=== PATIENT | male | born 1970 | race Hispanic/Latino ===

== ENCOUNTER 2017-11-14 06:37 | Emergency (ER) | payer BC, OTHER, SELFPAY ==
[2017-11-14] MEDS ORDERED: cloNIDine HCl 0.1 MG TAB ONE (07:07)
[2017-11-14 07:10] LABS: Absolute Lymphocytes (CBC) 1.8 K/uL (0.7-4.9); Absolute Monocytes 0.6 K/uL (0.1-1.3); Basophils % 0.6 % (0-1.3); Eosinophils % 1.3 % (0-4.4); Hematocrit 42.8 % (39.6-49.0); Lymphocytes % 21.3 % (15.3-44.8); MCH 28.2 pg (27.0-35.0); MCV 82.8 fL (80-100); MPV 9.1 fL (7.6-11.3); RBC Red Blood Cell Count 5.17 M/uL (4.33-5.43)
[2017-11-14 07:11] LABS: Protime INR 0.97
--- NOTE | 2017-11-14 07:14 | RAD REPORT ---
EXAM DESCRIPTION: CT - Head Brain Wo Cont - 11/14/2017 7:05 am CLINICAL HISTORY: Headache, hypertension It is unknown if the exam [facility] Final report issued prior t o any preliminary report. COMPARISON: None. TECHNIQUE: Axial 5 mm thick images of the head were obtained without IV contrast. All CT scans are performed using dose optimization technique as appropriate and may include automated exposure control or mA/KV adjustment according to patient size. FINDINGS: No intracranial hemorrhage, mass, edema or shift of mid-line structures. No acute infarcti on changes seen. No abnormal extra-axial fluid collections. Ventricles are normal. Faint hyperdensity near the left head of the caudate not seen as an acute finding. This is believed to be technical in nature. No cortical edema or sulcal effacement. Mastoid air cells and visualized portions of the paranasal sinuses are clear. No acute bony findings. IMPRESSION: No hemorrhage, mass or other abnormality to explain headache. No suspicious findings not ed.
[2017-11-14 07:26] LABS: ALT/SGPT 40 U/L (12-78); AST/SGOT 22 U/L (15-37); Albumin 3.9 g/dL (3.4-5.0); Alkaline Phosphatase 75 U/L (45-117); BUN Blood Urea Nitrogen 13 mg/dL (7-18); Bicarbonate 29 mmol/L (21-32); Bilirubin Direct 0.1 mg/dL (0-0.2); Bilirubin Total 0.6 mg/dL (0.2-1.0); Glucose Level 190 mg/dL (74-106); Magnesium 2.2 mg/dL (1.8-2.4); NT PRO-BNP 42 pg/mL (<125); Potassium 3.9 mmol/L (3.5-5.1); Protein, Total 7.5 g/dL (6.4-8.2); Sodium Level 140 mmol/L (136-145); Troponin (Emerg Dept Use Only) < 0.02 ng/mL (0.0-0.045)
--- NOTE | 2017-11-14 07:32 | EKG ---
Test Date: 2017-11-14 Test Time: 06:47:57 Full Stack Software Developer: BIANKA MEASUREMENT RESULTS: Intervals: Rate: 78 MS: 144 QRSD: 86 QT: 390 QTc: 444 [place]: P: 40 MS: 144 QRS: 18 T: 30 INTERPRETIVE STATEMENTS: Normal sinus rhythm Normal ECG Compared to ECG 01/23/2016 19:47:24 Left ventricular hypertrophy no longer present Electronically Signed On 11-14-17 07:31:47 CDT by Facundo Machuca
[2017-11-14] MEDS ORDERED: ACETAMINOPHEN 500 MG TAB ONE (08:02)
--- NOTE | 2017-11-14 09:53 | RAD REPORT ---
EXAM DESCRIPTION: RAD - Chest Single View - 11/14/2017 7:05 am CLINICAL HISTORY: Chest pain, hypertension COMPARISON: January 2016 TECHNIQUE: AP portable chest image was obtained 0651 hours . FINDINGS: Lungs are clear. Heart and vasculature are normal. No measurable pleural effusion and no p neumothorax. No acute bone finding. Old traumatic or developmental abnormality of the right second ri b noted and stable. No acute aortic findings suspected. IMPRESSION: No acute cardiopulmonary process. No significant change from comparison.
[2017-11-14] MEDS ORDERED: IBUPROFEN 200 MG TAB PO ONE (11:17)
--- NOTE | 2017-11-14 11:55 | EDPHYS ---
Physician Documentation [facility] Name: Lexa Carrizales Jr Age: 46 yrs Sex: Male : 1970 Arrival Date: 11/14/2017 Time: 06:38 Bed 8 Private MD: ED Physician Karlos Feng HPI: 11/14 07:39 This 46 yrs old Male presents to ER via Ambulatory with complaints of Chest kb Tightness, Headache, Blood Pressure Problem. 07:39 The patient has elevated blood pressure and discovered this at home, with a home kb device. Onset: The symptoms/episode began/occurred 3 day(s) ago. Associated signs and symptoms: Pertinent positives: chest pain, headache, Pertinent negatives: dizziness, dyspnea, lightheadedness, nausea, visual changes, vomiting, weakness. Severity of symptoms: At its worst the blood pressure was 160 mm Hg. The patient has not experienced similar symptoms in the past. The patient has not recently seen a physician. Pt reports high blood pressure and headache for 3 days, chest discomfort this morning. Had the nurse check his bp at work and she advised he come be evaluated at ER. Historical: - Allergies: 06:49 No Known Allergies; bb - Home Meds: 06:49 Unable to obtain [Active]; bb - PMHx: 06:49 Diabetes - IDDM; Hypertension; bb - PSHx: 06:49 Appendectomy; Hernia repair; Knee surgery; bb - Immunization history:: Adult Immunizations up to date. - Social history:: Smoking status: Patient/guardian denies using tobacco, Patient uses alcohol, occasionally. Patient/guardian denies using street drugs. - Ebola Screening: : No symptoms or risks identified at this time. ROS: 07:38 Constitutional: Negative for fever, chills, and weight loss, Respiratory: Negative for kb shortness of breath, cough, wheezing, and pleuritic chest pain, Abdomen/GI: Negative for abdominal pain, nausea, vomiting, diarrhea, and constipation, Back: Negative for injury and pain, : Negative for injury, bleeding, discharge, and swelling, MS/Extremity: Negative for injury and deformity, Skin: Negative for injury, rash, and discoloration. 07:38 Cardiovascular: Positive for "chest discomfort, not pain". 07:38 Neuro: Positive for headache. Exam: 07:38 Constitutional: This is a well developed, well nourished patient who is awake, alert, kb and in no acute distress. Head/Face: Normocephalic, atraumatic. Eyes: Pupils equal round and reactive to light, extra-ocular motions intact. Lids and lashes normal. Conjunctiva and sclera are non-icteric and not injected. Cornea within normal limits. Periorbital areas with no swelling, redness, or edema. ENT: Nares patent. No nasal discharge, no septal abnormalities noted. Tympanic membranes are normal and external auditory canals are clear. Oropharynx with no redness, swelling, or masses, exudates, or evidence of obstruction, uvula midline. Mucous membranes moist. Neck: Trachea midline, no thyromegaly or masses palpated, and no cervical lymphadenopathy. Supple, full range of motion without nuchal rigidity, or vertebral point tenderness. No Meningismus. Chest/axilla: Normal chest wall appearance and motion. Nontender with no deformity. No lesions are appreciated. Cardiovascular: Regular rate and rhythm with a normal S1 and S2. No gallops, murmurs, or rubs. Normal PMI, no JVD. No pulse deficits. Respiratory: Lungs have equal breath sounds bilaterally, clear to auscultation and percussion. No rales, rhonchi or wheezes noted. No increased work of breathing, no retractions or nasal flaring. Abdomen/GI: Soft, non-tender, with normal bowel sounds. No distension or tympany. No guarding or rebound. No evidence of tenderness throughout. Skin: Warm, dry with normal turgor. Normal color with no rashes, no lesions, and no evidence of cellulitis. MS/ Extremity: Pulses equal, no cyanosis. Neurovascular intact. Full, normal range of motion. Neuro: Awake and alert, GCS 15, oriented to person, place, time, and situation. Cranial nerves II-XII grossly intact. Motor strength 5/5 in all extremities. Sensory grossly intact. Cerebellar exam normal. Normal gait. Vital Signs: 06:49 BP 167 / 112; Pulse 83; Resp 16 S; Temp 97.7(O); Pulse Ox 97% on R/A; Weight 108.86 kg bb (R); Height 5 ft. 10 in. (177.80 cm) (R); Pain 5/10; 07:23 BP 146 / 93; Pulse 77; Resp 15; Pulse Ox 98% on R/A; Pain 5/10; ss 07:49 BP 134 / 89; Pulse 76; Resp 16; Pulse Ox 98% on R/A; Pain 4/10; ss 08:56 BP 136 / 99; Pulse 72; Resp 16; Pulse Ox 100% on R/A; ss 11:00 BP 129 / 87; Pulse 65; Resp 17; Pulse Ox 97% on R/A; Pain 5/10; ss 06:49 Body Mass Index 34.44 (108.86 kg, 177.80 cm) bb MDM: 06:43 Patient medically screened. kb 07:38 Data reviewed: vital signs, nurses notes. Data interpreted: Pulse oximetry: on room air kb is 98 %. Interpretation: normal. 11:55 Counseling: I had a detailed discussion with the patient and/or guardian regarding: the kb historical points, exam findings, and any diagnostic results supporting the discharge/admit diagnosis, lab results, radiology results, the need for outpatient follow up, a family practitioner, to return to the emergency department if symptoms worsen or persist or if there are any questions or concerns that arise at home. 11/14 06:49 Order name: Basic Metabolic Panel; Complete Time: 07:29 kb 11/14 06:49 Order name: CBC with Diff; Complete Time: 07:11 kb 11/14 06:49 Order name: LFT's; Complete Time: 07:29 kb 11/14 06:49 Order name: Magnesium; Complete Time: 07:29 kb 11/14 06:49 Order name: NT PRO-BNP; Complete Time: 07:29 kb 11/14 06:49 Order name: PT-INR; Complete Time: 07:14 kb 11/14 06:49 Order name: Troponin (emerg Dept Use Only); Complete Time: 07:29 kb 11/14 06:49 Order name: XRAY Chest (1 view); Complete Time: 09:55 kb 11/14 06:49 Order name: EKG; Complete Time: 06:50 kb 11/14 06:50 Order name: CT Head Brain wo Cont; Complete Time: 07:16 kb 11/14 10:53 Order name: Troponin (emerg Dept Use Only); Complete Time: 11:55 kb 11/14 06:49 Order name: Cardiac monitoring; Complete Time: 06:52 kb 11/14 06:49 Order name: EKG - Nurse/Tech; Complete Time: 06:52 kb 11/14 06:49 Order name: IV Saline Lock; Complete Time: 07:01 kb 11/14 06:49 Order name: Labs collected and sent; Complete Time: 07:01 kb 11/14 06:49 Order name: O2 Per Protocol; Complete Time: 06:52 kb 11/14 06:49 Order name: O2 Sat Monitoring; Complete Time: 06:52 kb 11/14 10:54 Order name: EKG; Complete Time: 10:54 kb 11/14 10:54 Order name: EKG - Nurse/Tech; Complete Time: 11:45 kb Administered Medications: 07:52 Not Given (Hemodynamic Parameters): cloNIDine 0.1 mg PO once ss 07:59 Drug: Tylenol 1000 mg Route: PO; ss 11:12 Drug: Ibuprofen 600 mg Route: PO; ss 12:15 Follow up: Response: No adverse reaction aa5 Disposition: 11/14/17 11:55 Discharged to Home. Impression: Essential (primary) hypertension, Chest pain, unspecified. - Condition is Stable. - Discharge Instructions: Nonspecific Chest Pain, [id number], Hypertension, [id number]. - Medication Reconciliation Form, Thank You Letter, Antibiotic Education, Prescription Opioid Use form. - Follow up: Emergency Department; When: As needed; Reason: Worsening of condition. Follow up: Private Physician; When: 2 - 3 days; Reason: Recheck today's complaints, Continuance of care, Re-evaluation by your physician. Signatures: Dispatcher [employer] EDIL Lacey Laura, BACKWINDER-C BACKWINDER-Zabrina Deluca, RN RN bb Nkechi Cruz, RN RN aa5 Georgina Land RN RN ss Corrections: (The following items were deleted from the chart) 12:18 11:55 11/14/2017 11:55 Discharged to Home. Impression: Essential (primary) aa5 hypertension; Chest pain, unspecified. Condition is Stable. Forms are Medication Reconciliation Form, Thank You Letter, Antibiotic Education, Prescription Opioid Use. Follow up: Emergency Department; When: As needed; Reason: Worsening of condition. Follow up: Private Physician; When: 2 - 3 days; Reason: Recheck today's complaints, Continuance of care, Re-evaluation by your physician. kb
--- NOTE | 2017-11-14 11:55 | ER ---
Nurse's Notes [facility] Name: Lexa Carrizales Jr Age: 46 yrs Sex: Male : 1970 Arrival Date: 11/14/2017 Time: 06:38 Bed 8 Private MD: Diagnosis: Essential (primary) hypertension;Chest pain, unspecified Presentation: 11/14 06:46 Presenting complaint: Patient states: his blood pressure has been elevated the last 3 bb days 140s/110s he takes blood pressure medication but does not know the name also c/o headaches and then this morning he is having some chest discomfort. Transition of care: patient was not received from another setting of care. Onset of symptoms was November 11, 2017. Risk Assessment: Do you want to hurt yourself or someone else? Patient reports no desire to harm self or others. Initial Sepsis Screen: Does the patient meet any 2 criteria? No. Patient's initial sepsis screen is negative. Does the patient have a suspected source of infection? No. Patient's initial sepsis screen is negative. Care prior to arrival: None. 06:46 Method Of Arrival: Ambulatory bb 06:46 Acuity: SJ 3 bb Historical: - Allergies: 06:49 No Known Allergies; bb - Home Meds: 06:49 Unable to obtain [Active]; bb - PMHx: 06:49 Diabetes - IDDM; Hypertension; bb - PSHx: 06:49 Appendectomy; Hernia repair; Knee surgery; bb - Immunization history:: Adult Immunizations up to date. - Social history:: Smoking status: Patient/guardian denies using tobacco, Patient uses alcohol, occasionally. Patient/guardian denies using street drugs. - Ebola Screening: : No symptoms or risks identified at this time. Screenin:18 Abuse screen: Denies threats or abuse. Denies injuries from another. Nutritional ss screening: No deficits noted. Tuberculosis screening: Never had TB. Fall Risk None identified. Assessment: 07:02 Reassessment: Pt to CT at this time VIA wheelchair. Report received from [facility] Aranda. ss 07:18 General: Appears in no apparent distress. comfortable, Behavior is calm, cooperative, ss Denies fever, feeling ill, fatigue, chills. Pain: Complains of pain in chest Pain does not radiate. Pain currently is 5 out of 10 on a pain scale. Quality of pain is described as "it's not pain, it's just chest discomfort/ tightness". Pain: Pain began 2-3 days ago. Is intermittent. Neuro: Level of Consciousness is awake, alert, obeys commands, Oriented to person, place, time, situation, Range Conservationist are equal bilaterally Moves all extremities. Full function Speech Facial symmetry appears normal, Pupils are PERRLA. Cardiovascular: Capillary refill < 3 seconds is brisk in bilateral fingers Patient's skin is warm and dry. Respiratory: Airway is patent Respiratory effort is even, unlabored, Respiratory pattern is regular, symmetrical. Respiratory: Denies cough, shortness of breath pain with respiration, pain with cough, pain with movement. Respiratory: Breath sounds are clear bilaterally. GI: Patient currently denies diarrhea, nausea, vomiting. : No signs and/or symptoms were reported regarding the genitourinary system. EENT: Nares are clear. Derm: Skin is intact, is healthy with good turgor, Skin is dry, Skin is pink, warm \\T\\ dry. normal. Musculoskeletal: Circulation, motion, and sensation intact. Range of motion: intact in all extremities, Swelling absent. 07:18 Reassessment: blood pressure trending down. Pt reports that he self administered his ss blood pressure medication as prescribed this AM at 0500. Will hold clonidine. 08:58 Reassessment: awaiting for 4 hour repeat troponin and EKG. Patient appears comfortable. ss 12:15 Reassessment: Patient is alert, oriented x 3, equal unlabored respirations, skin aa5 warm/dry/pink. Vital Signs: 06:49 BP 167 / 112; Pulse 83; Resp 16 S; Temp 97.7(O); Pulse Ox 97% on R/A; Weight 108.86 kg bb (R); Height 5 ft. 10 in. (177.80 cm) (R); Pain 5/10; 07:23 BP 146 / 93; Pulse 77; Resp 15; Pulse Ox 98% on R/A; Pain 5/10; ss 07:49 BP 134 / 89; Pulse 76; Resp 16; Pulse Ox 98% on R/A; Pain 4/10; ss 08:56 BP 136 / 99; Pulse 72; Resp 16; Pulse Ox 100% on R/A; ss 11:00 BP 129 / 87; Pulse 65; Resp 17; Pulse Ox 97% on R/A; Pain 5/10; ss 06:49 Body Mass Index 34.44 (108.86 kg, 177.80 cm) bb ED Course: 06:38 Patient arrived in ED. ds1 06:43 [facility]acey [facility]C [facility] kb 06:43 Karlos Feng MD is Attending Physician. kb 06:48 Triage completed. bb 06:49 Arm band placed on. bb 07:01 X-ray completed. Portable x-ray completed in exam room. Patient tolerated procedure jb2 well. 07:01 Initial lab(s) drawn, by me, sent to lab. Inserted saline lock: 20 gauge in right bb antecubital area, using aseptic technique. Blood collected. 07:04 XRAY Chest (1 view) In Process Unspecified. EDMS 07:05 CT Head Brain wo Cont In Process Unspecified. EDMS 07:05 CT completed. Patient tolerated procedure well. Patient moved to CT via wheelchair. jg6 Patient moved back from CT. 07:18 Georgina Land, RN is Primary Nurse. ss 07:18 Patient has correct armband on for positive identification. Bed in low position. Call ss light in reach. electronic device monitor on. Pulse ox on. NIBP on. 07:18 Patient maintains SpO2 saturation greater than 95% on room air. ss 11:28 EKG done, by distribution tech. reviewed by Lacey ROCK. at1 12:15 No provider procedures requiring assistance completed. IV discontinued, intact, aa5 bleeding controlled, No redness/swelling at site. Pressure dressing applied. Administered Medications: 07:52 Not Given (Hemodynamic Parameters): cloNIDine 0.1 mg PO once ss 07:59 Drug: Tylenol 1000 mg Route: PO; ss 11:12 Drug: Ibuprofen 600 mg Route: PO; ss 12:15 Follow up: Response: No adverse reaction aa5 Outcome: 11:55 Discharge ordered by . kb 12:15 Discharged to home ambulatory. aa5 12:15 Condition: stable 12:15 Discharge instructions given to patient, Instructed on discharge instructions, follow up and referral plans. Demonstrated understanding of instructions, follow-up care. 12:18 Patient left the ED. aa5 Signatures: Dispatcher [employer] EDMS Lacey Laura FNP-C FNP-Jesse Hall jb2 Shaina Gomez ds1 Zabrina Rosario, RN RN bb Nkechi Cruz, RN RN aa5 Georgina Land, RN RN ss Sherry Vega, [facility] Sally Suarez6
--- NOTE | 2017-11-14 12:09 | EKG ---
Test Date: 2017-11-14 Test Time: 11:21:37 Ceramic Coater: LYUDMILA MEASUREMENT RESULTS: Intervals: Rate: 62 MO: 142 QRSD: 92 QT: 410 QTc: 416 [place]: P: 29 MO: 142 QRS: 22 T: 42 INTERPRETIVE STATEMENTS: Normal sinus rhythm Normal ECG Compared to ECG 11/14/2017 06:47:57 No significant changes Electronically Signed On 11-14-17 12:08:16 CDT by Facundo Machuca
== END 2017-11-14 12:18 | disposition home or self-care (01) ==
LOC: ER 06:37
DX: I10 Essential (primary) hypertension (principal)
CPT/HCPCS: 36415; 70450; 71045; 80048; 80076; 83735; 83880; 84484; 85025; 85610; 93005; 99285

== ENCOUNTER 2023-05-19 06:30 | Day surgery (SDC) | payer BC ==
[2023-05-12 11:43] LABS: Absolute Eosinophils 0.2 K/uL (0-0.5); Absolute Lymphocytes (CBC) 1.5 K/uL (0.7-4.9); Absolute Monocytes 0.4 K/uL (0.1-1.3); Absolute Neutrophil 5.8 K/uL (1.8-8.0); Basophils % 0.5 % (0-1.3); Hematocrit 46.8 % (39.6-49.0); Hemoglobin 15.6 g/dL (13.6-17.9); Lymphocytes % 19.2 % (15.3-44.8); MCH 28.7 pg (27.0-35.0); MCHC 33.4 g/dL (32.0-36.0); MCV 86.1 fL (80-100); MPV 8.5 fL (7.6-11.3); Monocytes % 5.1 % (3.3-12.3); Neutrophils % 72.2 % (41.7-73.7); Nucleated Red Blood Cells % 0.1 % (0-0); Platelets 321 thou/uL (152-406); RBC Red Blood Cell Count 5.44 M/uL (4.33-5.43); Red Cell Distribution Width 14.2 % (12.1-15.2)
--- NOTE | 2023-05-12 11:44 | RAD REPORT ---
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 Hypertension COMPARISON: 2018 FINDINGS: The lungs appear clear of acute infiltrate. The heart is normal size IMPRESSION: No acute abnormalities displayed
[2023-05-12 11:54] LABS: Anion Gap 7.7 mEq/L (5.0-15.0); Potassium 3.7 mEq/L (3.5-5.1)
[2023-05-12 11:59] LABS: PTT, Activated Partial Thromb 36.7 SECONDS (24.3-36.9)
--- NOTE | 2023-05-15 12:52 | EKG ---
Test Date: 2023-05-12 Test Time: 11:28:26 Animal Science Instructor: JENNY MEASUREMENT RESULTS: Intervals: Rate: 72 AR: 152 QRSD: 92 QT: 384 QTc: 420 [place]: P: 71 AR: 152 QRS: 54 T: 77 INTERPRETIVE STATEMENTS: Normal sinus rhythm Normal ECG Compared to ECG 11/14/2017 11:21:37 No significant changes Electronically Signed On 05-15-23 12:43:35 CDT by Titus Kang
[2023-05-19] MEDS ORDERED: NITROGLYCERIN/D5W 50 MG/250 ML BTL IV ONE (06:44)
[2023-05-19] MEDS ORDERED: LIDOCAINE 1% 20 ML MDV ONE (06:44)
[2023-05-19] MEDS ORDERED: MIDAZOLAM HCL 2 MG/2 ML INJ ONE (06:44)
[2023-05-19] MEDS ORDERED: FENTANYL CITR 100 MCG/2 ML ONE (06:44)
[2023-05-19] MEDS ORDERED: VERAPAMIL HCL 10 MG/4 ML VIAL IV ONE (06:44)
[2023-05-19] MEDS ORDERED: HEPA 1000U/500MLS 2,000 UNIT/1,000 ML BAG IV ONE (06:44)
[2023-05-19] MEDS ORDERED: ASPIRIN 325 MG TAB ONE (06:45)
[2023-05-19] MEDS ORDERED: TICAGRELOR 90 MG TABLET PO ONE (06:45)
[2023-05-19] MEDS ORDERED: HEPARIN 5000 UNIT/ML 1 ML VIAL ONE (06:45)
[2023-05-19] MEDS ORDERED: CLOPIDOGREL 75 MG TABLET ONE (06:45)
[2023-05-19] MEDS ORDERED: HEPARIN 10,000 UNIT/10 ML VIAL IV ONE (06:45)
[2023-05-19] MEDS ORDERED: ATROPINE SULF 1 MG/10 ML SYR IV ONE (06:45)
[2023-05-19] MEDS ORDERED: NA CHLORIDE 0.9% 500 ML ONE (07:00)
--- NOTE | 2023-05-19 08:18 | OP ---
Date of Procedure: 05/19/2023 Surgeon: KANDY MCBRIDE Procedures Performed: 1.Selective coronary angiogram. 2.Left heart catheterization. Indication: Chest pain with abnormal stress test. Access: Right radial artery 6-[place], closed with TR band. Complications: None. Bleeding: Less than 50 mL. Anesthesia: Total sedation time was none. Not given sedation due to low blood pressure. Description Of Procedure: After risks, benefits, and alternatives were explained, the patient agreed to procedure and signed informed consent. The patient was [facility], prepped and draped in usual sterile fashion. Then, I accessed right radial artery using pedi atric micropuncture kit, placed a 6-[place] Slender sheath and took 5-[place] tiger 4 catheter over a J -wire into the aortic root across the aortic valve and measured the LVEDP. Pullback did not record a ny gradient. Then, I engaged the left main coronary artery and took standard views and then engaged the RCA and took standard views and removed the catheter and the sheath, placed TR band with good hem ostasis. Findings: 1.Left main, large and normal. 2.LAD, large vessel in the proximal segment. Mid segment is 30% stenosis and mid to distal 40% sten osis. Diagonal branches appears to be normal. 3.Left circumflex, moderate-sized vessel with luminal irregularities. 4.RCA is a very large, dominant and normal. 5.Normal LVEDP at 5 mmHg. Conclusions: 1.Mild nonobstructive coronary artery disease. 2.Normal LVEDP. Recommendation: Medical management. SR/MODL Voice ID: [id number] Report ID: [id number]
[2023-05-19 09:56] VITALS: O2SAT 98
[2023-05-19 09:58] VITALS: BP 119/78; TEMP 98.1
== END 2023-05-19 09:59 | disposition home or self-care (01) ==
LOC: CCL 06:30
PROVIDERS: ATTEND Internal Medicine
DX: I25.10 Atherosclerotic heart disease of native coronary artery without angina pectoris (principal); I10 Essential (primary) hypertension; E78.2 Mixed hyperlipidemia; E11.9 Type 2 diabetes mellitus without complications; Z79.84 Long term (current) use of oral hypoglycemic drugs; Z79.85 Long-term (current) use of injectable non-insulin antidiabetic drugs; Z79.899 Other long term (current) drug therapy; Z82.49 Family history of ischemic heart disease and other diseases of the circulatory system
CPT/HCPCS: 93005; 85025; 80048; 36415; 85610; 82947; 85730; 71046; 93458; 76937; C1893; J2001; J7040; J0461; J1644; J2250; J3010

== ENCOUNTER 2024-02-14 14:07 | Emergency (ER) | payer BC ==
--- OUTSIDE RECORDS SUMMARY | 2024-02-14 14:13 | XMS REPORT | Continuity of Care Document ---
Author Name Unknown Address [address] [facility]. [address] [place] [address] [facility] thconnect Address [address] [facility] [address] [place] [address] Care Team Providers Care [employer] Hcm Consultant Name Role Phone DEL PAL Primary Care Physician Unavailab Elder Vazquez Attending Clinician Unava ilable ELDER RODGERS Attending Clinician Unava ilable MD IAN Attending Clinician Unavailab le OUTSIDE, REPORTED Attending Clinician Unavailabl DEL Bruno Attending Clinician Unavailable ELIAN COUGHLIN Attending Clinician Unavailable [facility]90 Attending Clinician Unavailable [facility] Attending Clinician Unavailabl e PL, TECH 1 Attending Clinician Unavailable BOO POE Attending Clinician Unavaila ble Boo Tejada Attending Clinician + [phone] MELONIE HALEY Attending Clinician Unavailable BRANDON EVANGELISTA Attending Clinician Unavailable PAUL TAYLOR Attending Clinician Unavail able PRATEEK LUX Attending Clinician Unavailable Prateek Lux DO Attending Clinician [phone] ASYA LUKE Attending Clinician Unavailable STEWART MCKEON Attending Clinician Unavailable RONALD GUTHRIE Attending Clinician Unavailable Ronald Guthrie MD Attending Clinician [phone] CIELO TORO Attending Clinician Unavailable THERESA MO Attending Clinician Unavailable SAM MO Attending Clinician Unavailab ABBE Montesinos Attending Clinician Unavailable REVA SCANLON Attending Clinician Unavailab FLAKITO Austin Attending Clinician Unavailable Flakito Morin MD Attending Clinician [phone] Doctor Unassigned, [place] Attending Clinician U RILEY Ramsay Attending Clinician Unavailable WARREN GRIFFITH Attending Clinician Unavailable Del Haji Attending Clinician [phone] CHANTAL ALEJANDRA Attending Clinician Unavailab Chantal Quinn DO Attending Clinician [phone] GARLAND LUKE Attending Clinician Unavailable [facility]47 Attending Clinician Unavailable Riley Pearce DO Attending Clinician [phone] Yany Garcia DPM Attending Clinician [phone] YANY GARCIA Attending Clinician Unavailable CARMEN ISSA Attending Clinician Unavaila Carmen Castaneda Attending Clinician [phone] Sharlene Wiley Admitting Clinician Unavaila ble Physician, No Primary or Family Admitting Clinic eyad Unavailable BOO POE Admitting Clinician Unavaila RONALD Pennington Admitting Clinician Unavailable FLAKITO MORIN Admitting Clinician Unavailable CHANTAL ALEJANDRA Admitting Clinician Unavailab CARMEN Robles Admitting Clinician Unavaila harman Payers Payer Name Policy Type Policy Number Effective Date Expirati on Date Source [facility] 9 [id number] 2018 00:00:00 [id number] 00:[facility]:00 2023 00:00:00 Problems Condition Name Condition Details Condition Category Status Onset Date Resolution Date Last Treatment Date Treating Clinician Comments Source B12 deficiency B12 deficiency Disease Active 05-16 00:00: 00 Angela Orantes - Externa l Vitamin D deficiency Vitamin D deficiency Disease Active 05-16 00:00: 00 Angela Beattyold - Externa l Type 2 diabetes, uncontroll ed, with neuropathy Type 2 diabetes, uncontroll ed, with neuropathy Disease Active 09-24 00:00: 00 Angela Setereseold - Externa l Type 2 diabetes, uncontroll ed, with neuropathy Type 2 diabetes, uncontroll ed, with neuropathy Disease Active 09-24 00:00: 00 Angela Beattyold - Externa l DION (obstructi ve sleep apnea) DION (obstructi ve sleep apnea) Disease Active 09-27 00:00: 00 Angela Setereseold - Externa l Severe episode of recurrent major depressive disorder, without psychotic features (multi HCC) Severe episode of recurrent major depressive disorder, without psychotic features (multi HCC) Disease Active 10-18 00:00: 00 Angela Seybold - Externa l DM type 2 with diabetic mixed hyperlipid emia (multi HCC) DM type 2 with diabetic mixed hyperlipid emia (multi HCC) Disease Active 04-19 00:00: 00 Angela Beattyold - Externa l Essential hypertensi on Essential hypertensi on Disease Active 04-19 00:00: 00 Angela Seybold - Externa l Umbilical hernia Umbilical hernia Disease Active 08-12 00:00: 00 Angela Beattyold - Externa l Obesity (BMI 30.0-34.9) Obesity (BMI 30.0-34.9) Disease Active 08-12 00:00: 00 Angela Beattyold - Externa l No known active problems No known active problems Disease [facility] Allergies, Adverse Reactions, Alerts Allergy Name Allergy Type Status Severity Reaction(s) Onset Date Inactive Date Treating Clinician Comments Source No Known Allergie s DA Active [facility] 08-26 00:00: [facility] NO KNOWN ALLERGIE S Drug Class Active [facility] Social History Social Habit Start Date Stop Date Quantity Comments Source Gender [facility] History SDOH Alcohol Frequency Angela truong - External History SDOH Alcohol Std Drinks Angelanabila coy - External History SDOH Alcohol Binge Angela Rolanda - External History of Occupation Angela Orantes - External Alcoholic beverage intake 2024-01-17 00:00:00 2024-01-17 00:00:00 1.71 /d Angela Rolanda - External Alcohol intake 2023-04-12 00:00:00 2023-04-12 00:00:00 1.71 /d Angela Guerreroanneliese - External History of Social function 2022-09-05 00:00:00 2022-09-05 00:00:00 Angela Beattylatasha - External Tobacco use and exposure 2022-05-11 00:00:00 2022-05-11 00:00:00 Smokeless tobacco non-user Angela Beattylatasha - External Exposure to SARS-CoV-2 (event) 2022-04-26 00:00:00 2022-05-06 19:38:00 Not sure [facility] Alcohol Comment 2017-05-05 00:00:00 2017-05-05 00:00:00 Ocassionally Angela Orantes - External Sex 2014-08-08 09:03:22 2014-08-08 09:03:22 Male (finding) Angela Orantes - External Sex assigned at 1970 00:00:00 1970 00:00:00 M Angela Orantes - External Smoking Status Start Date Stop Date Source Never smoked tobacco Angela Beattylatasha - External Tobacco smoking consumption unknown [facility] Medications Ordered Medication Name Filled Medication Name Start Date Stop Date Current Medication? Ordering Clinician Indication Dosage Frequency Signature (SIG) Comments Components Source Amlodipine Besylate 10 MG oral Tablet 2023-02 10:32: 24 Yes 10mg QD Take 1 tablet (10 mg total) by mouth daily. Angela Truong Externa l Cholecalcif reagan 25 MCG (1000 UT) oral Capsule 2024-1 2-05 00:00: 00 Yes [id number] 1000U QD Take 1,000 units by mouth daily. Angela arteaga Amlodipine Besylate 10 MG oral Tablet 2023-02 0 15:10: 00 Yes 10mg QD Take 1 tablet (10 mg total) by mouth daily. Angela arteaga Cyanocobala min (VIT B12) injection 1,000 mcg 2023-02 0-07 17:45: 00 11-07 17:44 :00 No [id number] 1000ug Angela arteaga aspirin tablet 325 mg 10-19 03:45: 00 10-19 03:20 :00 No 325mg 325 mg, Oral, ONCE, 1 dose, On Chasidy 10/19/23 at 2245, DEEPIKA [facility] Amlodipine Besylate 10 MG oral Tablet 10-18 15:18: 19 Yes 10mg QD Take 1 tablet (10 mg total) by mouth daily. Angela arteaga Vitamin D, Ergocalcife rol, 1.25 MG (74298 UT) oral Capsule 09-14 00:00: 00 Yes [id number] Q1W Take 1 capsule (50,000 units total) by mouth once a week. Angela arteaga Tirzepatide (Mounjaro) 10 MG/0.5ML subcutaneou s Solution Pen-injecto r 08-28 00:00: 00 Yes [id number] 3 INJECT 10 MG TOTAL (0.5 ML) INTO THE SKIN ONCE A WEEK. Angela arteaga Tirzepatide (Mounjaro) 10 MG/0.5ML subcutaneou s Solution Pen-injecto r 0 08-28 00:00: 00 Yes [id number] 3 INJECT 10 MG TOTAL (0.5 ML) INTO THE SKIN ONCE A WEEK. Angela arteaga Cyanocobala min (VIT B12) injection 1,000 mcg 08-13 05:00: 00 11-05 04:59 :00 No [id number] 1000ug Q1W Angela arteaga Tirzepatide (Mounjaro) 10 MG/0.5ML subcutaneou s Solution Pen-injecto r 06-20 00:00: 00 Yes [id number] 3 10mg Inject 0.5 mL (10 mg total) into the skin once a week. Angela arteaga Tizanidine HCl 4 MG oral Tablet 06-20 00:00: 00 Yes [id number] 4mg Q.[id number] 3D Take 1 tablet (4 mg total) by mouth every 8 hours as needed for muscle spasms. Angela arteaga Atorvastati n Calcium 40 MG oral Tablet 05-30 00:00: 00 Yes 40mg Take 1 tablet (40 mg total) by mouth at bedtime. Angela arteaga Cyanocobala min (VIT B12) injection 1,000 mcg 05-14 05:00: 00 08-06 04:59 :00 No [id number] 1000ug Angela arteaga Glucose Blood in vitro Strip 05-13 00:00: 00 Yes [id number] 3 100{eac h} QD 100 each by other route daily. Angela arteaga Blood Glucose Monitoring Suppl (Blood Glucose Monitor System) w/Device does not apply Kit 05-13 00:00: 00 Yes [id number] 3 Accu-chek. Angela arteaga Vitamin D, Ergocalcife rol, 1.25 MG (99265 UT) oral Capsule 05-12 00:00: 00 Yes [id number] 54249Z Take 1 capsule (50,000 units total) by mouth once a week. Angela arteaga Bupropion HCL XL 300 MG OR TB24 05-09 00:00: 00 Yes [id number] 300mg QD Take 1 tablet (300 mg total) by mouth daily. Angela arteaga hydroCHLORO thiazide 25 MG oral Tablet 05-09 00:00: 00 Yes [id number] 25mg QD Take 1 tablet (25 mg total) by mouth daily. Angela arteaga Losartan Potassium (COZAAR) 50 MG oral Tablet 05-09 00:00: 00 Yes [id number] 50mg QD Take 1 tablet (50 mg total) by mouth daily. Angela arteaga Semaglutide (2 mg/dose) 8 mg/3 mL SQ Solution Pen-Injecto r 05-09 00:00: 00 Yes [id number] 3 2mg Q1W Inject 2 mg into the skin once a week. Angela arteaga Lancets does not apply Misc 05-09 00:00: 00 Yes [id number] 3 For daily glucose monitoring . Angela arteaga Tizanidine HCl 4 MG oral Tablet 05-09 00:00: 00 06-20 00:00 :00 No [id number] 4mg Q.[id number] 3D Take 1 tablet (4 mg total) by mouth every 8 hours as needed for muscle spasms. Angela arteaga Bupropion HCL XL 150 MG OR TB24 17 00:00: 00 05-09 00:00 :00 No [id number] 300mg Take 2 tablets (300 mg total) by mouth daily. Angela arteaga Bupropion HCL XL 150 MG OR TB24 04-11 00:00: 00 Yes [id number] 300mg Take 2 tablets (300 mg total) by mouth daily. Angela arteaga Losartan Potassium (COZAAR) 50 MG oral Tablet 04-11 00:00: 00 Yes [id number] 50mg Take 1 tablet (50 mg total) by mouth daily. Angela arteaga hydroCHLORO thiazide 25 MG oral Tablet - 00:00: 00 Yes [id number] 25mg Take 1 tablet (25 mg total) by mouth daily. Angela arteaga Losartan Potassium-H CTZ 100-12.5 MG oral Tablet - 00:00: 00 04-11 00:00 :00 No [id number] 1{tbl} Take 1 tablet by mouth daily. Angela arteaga Promethazin e-DM 6.25-15 MG/5ML oral Syrup 03-29 00:00: 00 Yes [id number] 22616 5mL Q.25D Take 5 mL by mouth 4 times daily as needed. Angela arteaga FLUTICASONE PROPIONATE, NASAL, 50 MCG/ACT nasal Suspension 03-29 00:00: 00 Yes [id number] 50ug Q.5D Use 1 spray (50 mcg total) in each nostril 2 times daily. Angela arteaga Albuterol HFA 108 (90 Base) MCG/ACT IN AERS 03-29 00:00: 00 Yes [id number] 94800 2{puff} Q.25D Inhale 2 puffs into the lungs every 6 hours as needed for wheezing. Angela arteaga PAXLOVID STANDARD (30) (300/100) Therapy Pack 03-29 00:00: 00 04-04 05:59 :00 No [id number] Take two 150 mg nirmatrelv ir (pink) tablets with one 100 mg ritonavir (white) tablet by mouth two times daily for 5 days. Angela arteaga Bupropion HCL XL 150 MG OR TB24 03-27 00:00: 00 Yes [id number] 150mg Take 1 tablet (150 mg total) by mouth daily. Angela arteaga OZEMPIC (1 mg/dose) 4 mg/3 mL SQ Solution Pen-Injecto r 02-16 00:00: 00 05-09 00:00 :00 No [id number] 3 1mg Inject 1 mg into the skin once a week. Angela arteaga Pantoprazol e Sodium 20 MG oral Tablet Delayed Response 2022-02 00:00: 00 Yes [id number] 20mg Take 1 tablet (20 mg total) by mouth daily. Angela arteaga benzonatate 100 mg capsule 2022-02- 00:00: 00 Yes [id number] 100mg Take 1 capsule by mouth 3 (three) times daily as needed for Cough. [facility] Chlorphenir amine Maleate 4 MG oral Tablet 2022-02 1-09 00:00: 00 04-11 00:00 :00 No 4mg Q.25D Take 1 tablet (4 mg total) by mouth every 6 hours as needed. Angela arteaga Pantoprazol e Sodium 20 MG oral Tablet Delayed Response 2022-02 0-30 00:00: 00 Yes [id number] 20mg Take 1 tablet (20 mg total) by mouth daily. Angela arteaga OZEMPIC (1 mg/dose) 4 mg/3 mL SQ Solution Pen-Injecto r 2022-02 0-05 00:00: 00 Yes [id number] 3 1mg Inject 1 mg into the skin once a week. Angela arteaga Tizanidine HCl 4 MG oral Tablet -12 00:00: 00 05-09 00:00 :00 No [id number] 4mg Q.[id number] 3D TAKE 1 TABLET BY MOUTH EVERY 8 HOURS NEEDED FOR MUSCLE SPASMS. Angela arteaga famotidine (PEPCID (PF)) injection 20 mg 09-24 06:30: 00 09-24 05:34 :00 No 20mg 20 mg, Slow IV Push, ONCE NOW, 1 [facility] al[facility]-s imeth (MAALOX PLUS / MAG-AL PLUS) 200-200-20 mg/5 mL suspension 30 mL 09-24 05:30: 00 09-24 05:33 :00 No 30mL 30 mL, Oral, ONCE, 1 dose, [facility]24[facility] 0030[facility] aspirin tablet 325 mg 09-24 04:30: 00 09-24 03:49 :00 No 325mg 325 mg, Oral, ONCE, 1 dose, On Mon09/23/22 at 2330, Routine [facility] nitroglycer in (NITROSTAT) sublingual tablet 0.4 mg 09-24 03:41: 03 Yes .4mg 0.4 mg, Sublingual , Q5MIN PRN, 3 doses, Starting on Mon09/23/22 at 2241, Until Discontinu ed, DEEPIKA, Chest pain [facility] Hyoscyamine Sulfate 0.125 MG sublingual SL Tab 09-24 00:00: [address] 2 TABLETS UNDER THE TONGUE EVERY 6 HOURS NEEDED Angela arteaga Sucralfate 1 g oral Tablet 09-24 00:00: 00 04-11 00:00 :00 No TAKE 1 TABLET BY MOUTH BEFORE MEALS AND AT BEDTIME Angela arteaga Famotidine (PEPCID) 20 MG oral tablet 09-24 00:00: 00 12-05 00:00 :00 No 20mg Take 1 tablet (20 mg total) by mouth 2 times daily. Angela arteaga Tizanidine HCl 4 MG oral Tablet 07-20 00:00: 00 Yes [id number] 4mg Q.[id number] 3D Take 1 tablet (4 mg total) by mouth every 8 hours as needed for muscle spasms Angela arteaga OZEMPIC (1 mg/dose) 4 mg/3 mL SQ Solution Pen-Injecto r 07-15 00:00: 00 Yes [id number] 3 1mg Inject 1 mg into the skin once a week Angela arteaga Bupropion HCL XL 150 MG OR TB24 07-15 00:00: 00 Yes [id number] 150mg Take 1 tablet (150 mg total) by mouth daily Angela arteaga Empaglifloz in (Jardiance) 25 MG oral Tablet 07-15 00:00: 00 Yes [id number] 3 25mg QD Take 1 tablet (25 mg total) by mouth daily Angela arteaga Dulaglutide (Trulicity) 3 MG/0.5ML subcutaneou s Solution Pen-injecto r 5-25 00:00: 00 07-15 00:00 :00 No [id number] 3 3mg Inject 3 mg into the skin once a week Angela arteaga Jardiance 25 MG oral Tablet 5-02 00:00: 00 07-15 00:00 :00 No [id number] 3 TAKE 1 TABLET BY MOUTH EVERY DAY Angela arteaga Testosteron e Cypionate (DEPO-TESTO STERONE) 200 mg/mL - Every 14 Days 06-01 17:00: 00 06-01 17:07 :00 No [id number] 100mg Angela arteaga NEEDLE, DISP, 23 G 23G X " does not apply Misc 06-01 00:00: 00 Yes [id number] Use as directed Angela arteaga NEEDLE, DISP, 18 G (BD Disp [place]) 18G X " does not apply Misc 06-01 00:00: 00 Yes [id number] Use as directed Angela arteaga Testosteron e Cypionate (DEPO-TESTO STERONE) 200 MG/ML intramuscul ar Solution 06-01 00:00: 00 04-11 00:00 :00 No [id number] 100mg Inject 100 mg into the muscle every 7 days Angela arteaga TRIMETHOPRI M-SULFAMETH OXAZOLE (Bactrim DS) 800-160 MG oral Tablet - 00:00: 00 05-22 04:59 :00 No 1{tbl} Take 1 tablet by mouth every 12 hours for 10 days Angela arteaga cefTRIAXone (ROCEPHIN) injection 500 mg 05-07 04:15: 00 05-07 03:43 :00 No 500mg 500 mg, Intramuscu lar, ONCE, 1 dose, On Mon05/06/22 at 2315, DEEPIKA
Re ason for Anti-Infec tive: Empiric Therapy for Suspected Infection< br>Empiric Therapy Site: Other
O ther site: EPIDIDYMIT IS
Dura tion of therapy: 72 hours [facility] HYDROcodone -acetaminop hen (NORCO) 10-325 mg tablet 1 tablet 05-07 04:15: 00 05-07 03:43 :00 No 1{tbl} 1 tablet, Oral, ONCE NOW, 1 dose, On Mon05/06/22 at 2315, Routine [facility] ondansetron (ZOFRAN-ODT ) disintegrat ing tablet 4 mg 05-07 02:30: 00 05-07 01:37 :00 No 4mg 4 mg, Oral, ONCE, 1 dose, On Mon05/06/22 at 2130, Routine [facility] FENTanyl PF (SUBLIMAZE (PF)) injection 75 mcg 05-07 02:00: 00 05-07 01:29 :00 No 75ug 75 mcg, Intramuscu lar, ONCE, 1 dose, On Mon05/06/22 at 2100, Routine [facility] Doxycycline Hyclate 100 MG oral Capsule 05-07 00:00: 00 12-05 00:00 :00 No TAKE 1 CAPSULE BY MOUTH IN THE MORNING AND IN THE EVENING Angela arteaga Ibuprofen (MOTRIN) 800 MG oral Tablet 05-07 00:00: 00 05-10 00:00 :00 No TAKE 1 TABLET BY MOUTH EVERY 8 HOURS NEEDED FOR PAIN (SCALE 4-6). Angela arteaga ibuprofen 800 mg tablet 05-06 00:00: 00 Yes [id number] 800mg Take 1 tablet by mouth every 8 (eight) hours as needed for Pain (scale 4-6). [facility] Doxycycline Hyclate 100 MG oral Capsule 05-06 00:00: 00 12-05 00:00 :00 No 100mg Take 1 capsule (100 mg total) by mouth 2 times daily Angela arteaga Amlodipine Besylate 10 MG oral Tablet 05-05 00:00: 00 04-11 00:00 :00 No [id number] 10mg Take 1 tablet (10 mg total) by mouth daily Angela arteaga Gabapentin 300 MG oral Capsule 04-11 00:00: 00 Yes [id number] 300mg Q.5D Take 1 capsule (300 mg total) by mouth 2 times daily as needed Angela arteaga Losartan Potassium-H CTZ 100-25 MG oral Tablet 04-11 00:00: 00 04-11 00:00 :00 No [id number] 1{tbl} Take 1 tablet by mouth daily Angela arteaga Tizanidine HCl 4 MG oral Tablet 04-08 00:00: 00 Yes [id number] 4mg Q.[id number] 3D Take 1 tablet (4 mg total) by mouth every 8 hours as needed for muscle spasms Angela arteaga Dexamethaso ne (DECADRON) 4 mg/mL 03-08 21:30: 00 03-08 21:39 :00 No [id number] 8mg Angela arteaga Celecoxib (CeleBREX) 200 MG oral Capsule 03-08 00:00: 00 Yes [id number] 200mg Take 1 capsule (200 mg total) by mouth 2 times daily Angela arteaga Dexamethaso ne 2 MG oral Tablet 03-08 00:00: 00 07-15 00:00 :00 No [id number] 2mg Take 1 tablet (2 mg total) by mouth in the morning and 1 tablet (2 mg total) in the evening. Take with meals. Angela arteaga Tizanidine HCl 4 MG oral Tablet 03-03 00:00: 00 Yes [id number] TAKE 1 TABLET BY MOUTH EVERY 8 HOURS NEEDED FOR MUSCLE SPASMS. Angela arteaga Carvedilol 25 MG oral Tablet 03-03 00:00: 00 Yes TAKE 1 TABLET BY MOUTH TWICE A DAY WITH FOOD FOR 90 DAYS Angela arteaga Trulicity 3 MG/0.5ML subcutaneou s Solution Pen-injecto r 2021-02 2-15 00:00: 00 Yes [id number] 3 3mg Inject 3 mg into the skin once a week Angela arteaga Jardiance 25 MG oral Tablet 2021-02 00:00: 00 Yes [id number] 3 TAKE 1 TABLET BY MOUTH EVERY DAY Angela arteaga Naproxen 500 MG oral Tablet 2021-02 00:00: 00 12-05 00:00 :00 No [id number] TAKE 1 TABLET BY MOUTH TWICE A DAY WITH MEALS Angela arteaga FLUTICASONE PROPIONATE, NASAL, 50 MCG/ACT nasal Suspension 2021-02 00:00: 00 03-29 00:00 :00 No [id number] SPRAY 1 SPRAY INTO EACH NOSTRIL TWICE A DAY Angela arteaga Continuous Blood Gluc [employer]er (Field AgentStyle Alessandra 2 [place]) does not apply Device 10-14 00:00: 00 12-05 00:00 :00 No [id number] 3 Check BS once in the morning fasting ans at least 2-4 times throughout the day. Angela arteaga Continuous Blood Gluc Sensor (FreeStyle Alessandra 14 Day Sensor) does not apply Misc 10-14 00:00: 00 12-05 00:00 :00 No [id number] 3 Check BS once in the am fasting and at least 2-4 times throughout the day Angela arteaga Bupropion HCL XL 150 MG OR TB24 10-14 00:00: 00 07-15 00:00 :00 No [id number] 150mg Take 1 tablet (150 mg total) by mouth daily Angela arteaga Carvedilol 12.5 MG oral Tablet 10-14 00:00: 00 03-08 00:00 :00 No [id number] TAKE 1 TABLET BY MOUTH TWICE A DAY WITH MEALS Angela arteaga iopamidol (ISOVUE 370-500 mL) injection 70 mL 10-10 17:15: 00 10-10 16:15 :00 No [id number] 70mL 70 mL, Intravenou s, ONCE, 1 dose, On 10/10/21 at 1215, [facility] ondans[facility] (ZOFRAN (PF)) injection 4 mg 10-10 16:00: 00 10-10 16:05 :00 No 4mg 4 mg, Slow IV Push, ONCE, 1 dose, On 10/10/21 at 1100, DEEPIKA [facility] morpHINE (4 mg/mL) injection 4 mg 10-10 16:00: 00 10-10 16:06 :00 No 4mg 4 mg, Slow IV Push, ONCE, 1 dose, On 10/10/21 at 1100, STAT [facility] Gabapentin 300 MG oral Capsule 2020-02 00:00: 00 Yes [id number] 300mg Q.5D Take 1 capsule (300 mg total) by mouth 2 times daily as needed Angela arteaga Empaglifloz in (Jardiance) 10 MG oral Tablet 2020-02 00:00: 00 Yes [id number] 3 1 tablet po Q daily Angela Orantes Losartan Potassium-H CTZ 100-25 MG oral Tablet 2020-02 00:00: 00 Yes [id number] TAKE 1 TABLET BY MOUTH EVERY DAY Angela arteaga Amlodipine Besylate 10 MG oral Tablet 2020-02 00:00: 00 Yes [id number] TAKE 1 TABLET BY MOUTH EVERY DAY Angela arteaga Dulaglutide (Trulicity) 1.5 MG/0.5ML subcutaneou s Solution Pen-injecto r 2020-02 00:00: 00 Yes [id number] INJECT 1.5 ML SUB-Q ONCE WEEKLY Angela Orantes Bupropion HCL XL 150 MG OR TB24 2020-02 00:00: 00 Yes [id number] TAKE 1 TABLET BY MOUTH EVERY DAY Angela Orantes methylPREDN ISolone (Medrol) 4 MG oral Tablet Therapy Pack 10-27 00:00: 00 Yes 1{ellyn} Take 1 ellyn by mouth See Admin Instructio ns Use as directed. Angela Orantes INSULIN ISOPHANE & REG MIX, HUMAN, (70-30) 100 UNIT/ML subcutaneou s Suspension 09-25 00:00: 00 04-11 00:00 :00 No [id number] 3 Inject 35 units subcutaneo us twice a day (before breakfast and dinner) Angela Orantes - Externa l Gabapentin 100 MG oral Capsule 09-24 00:00: 00 Yes [id number] 100mg Take 1 capsule (100 mg total) by mouth 3 times daily Angela Orantes Naproxen 500 MG oral Tablet 09-24 00:00: 00 Yes [id number] 500mg Take 1 tablet (500 mg total) by mouth 2 times daily (with meals) Angela Orantes Dulaglutide (Trulicity) 1.5 MG/0.5ML subcutaneou s Solution Pen-injecto r 08-07 00:00: 00 Yes [id number] INJECT 1.5 ML SUB-Q ONCE WEEKLY Angela Orantes maalox:diph enhydrAMINE :lidocaine 2 % viscous 1:1:1 (FIRST-MOUT HWASH BLM) oral suspension 15 mL 06-26 18:00: 00 06-26 17:13 :00 No 15mL 15 mL, Oral, ONCE, 1 dose, Mon06/26/20 at 1300, Routine [facility] dulaglutide (TRULICITY) 1.5 mg/0.5 mL PnIj 06-26 16:36: 25 Yes inject under the skin. [facility] losartan-hy drochloroth iazide 100-25 mg per tablet 06-26 16:36: 25 Yes 1{tbl} Take 1 tablet by mouth daily. [facility] amLODIPine 10 mg tablet 06-26 16:36: 25 Yes 10mg Take 10 mg by mouth daily. [facility] clobetasoL 0.025 % Crea 06-26 16:36: 25 Yes Apply to area(s). [facility] buPROPion XL 150 mg 24 hr tablet 06-26 16:36: 25 Yes 150mg Take 150 mg by mouth daily. [facility] carvediloL 12.5 mg tablet 06-26 16:36: 25 Yes 12.5mg Take 12.5 mg by mouth 2 (two) times daily. [facility] insulin NPH hum/reg insulin hm (HUMULIN 70/30 U-100 INSULIN SC) 06-26 16:30: 56 Yes 30U inject 30 Units under the skin 2 (two) times daily. [facility] dulaglutide (TRULICITY) 1.5 mg/0.5 mL PnIj 06-26 11:36: 25 Yes inject under the skin. [facility] losartan-hy drochloroth iazide 100-25 mg per tablet 06-26 11:36: 25 Yes 1{tbl} Take 1 tablet by mouth daily. [facility] amLODIPine 10 mg tablet 06-26 11:36: 25 Yes 10mg Take 10 mg by mouth daily. [facility] clobetasoL 0.025 % Crea 06-26 11:36: 25 Yes Apply to area(s). [facility] buPROPion XL 150 mg 24 hr tablet 06-26 11:36: 25 Yes 150mg Take 150 mg by mouth daily. [facility] carvediloL 12.5 mg tablet 06-26 11:36: 25 Yes 12.5mg Take 12.5 mg by mouth 2 (two) times daily. [facility] insulin NPH hum/reg insulin hm (HUMULIN 70/30 U-100 INSULIN SC) 06-26 11:30: 56 Yes 30U inject 30 Units under the skin 2 (two) times daily. [facility] pantoprazol e 40 mg EC tablet 06-26 00:00: 00 07-27 04:59 :00 No [id number] 40mg Take 1 tablet by mouth daily for 30 days. [facility] Tizanidine HCl 4 MG oral Tablet 04-27 00:00: 00 Yes [id number] 4mg Q8H TAKE 1 TABLET (4 MG TOTAL) BY MOUTH EVERY 8 HOURS NEEDED FOR MUSCLE SPASMS Angela Orantes butalbital- acetaminoph en-caff (ESGIC) 50-325-40 mg tablet 1 tablet 2019-02 07:00: 00 01-07 06:02 :00 No 1{tbl} 1 tablet, Oral, ONCE, 1 dose, Mon01/08/20 at 0100, Routine [facility] Bupropion HCL XL 150 MG OR TB24 09-23 00:00: 00 Yes [id number] 150mg Take 1 tablet (150 mg total) by mouth daily Angela Orantes Losartan Potassium-H CTZ 100-25 MG oral Tab 09-17 00:00: 00 Yes [id number] 1{tbl} Take 1 tablet by mouth daily Angela Orantes Carvedilol 12.5 MG oral Tab 09-17 00:00: 00 Yes [id number] 12.5mg Take 1 tablet (12.5 mg total) by mouth 2 times daily (with meals) Angela Orantes Amlodipine Besylate 10 MG oral Tab 09-17 00:00: 00 Yes [id number] 10mg Take 1 tablet (10 mg total) by mouth daily Angela Orantes Glucose Blood in vitro Strip 05-29 00:00: 00 Yes [id number] Tests glucose BID Angela Orantes - Externa l Glucose Blood in vitro Strip 05-29 00:00: 00 Yes [id number] Tests glucose BID Angela Orantes - Giulianoa l Insulin Syringe-Nee dle U-100 30G X 5/16" 0.5 ML does not apply [facility] [place]:00: 00 Yes [id number] Takes insulin BID Angela Orantes - Externa l cyclobenzap rine 10 mg tablet 2018-02 00:00: 00 Yes [id number] 10mg Take 1 tablet by mouth 3 (three) times daily. [facility] ibuprofen 600 mg tablet 2018-02 00:00: 00 Yes [id number] 600mg Take 1 tablet by mouth every 6 (six) hours as needed for Pain (scale 4-6). [facility] Blood Pressure Monitoring (BLOOD PRESSURE CUFF) does not apply [facility] [place] 00:00: 00 Yes [id number] Use to check blood pressure once daily Angela Orantes INSULIN SYRINGE 1CC/29G 29G X 1/2" 1 ML does not apply Misc 06 00:00: 00 Yes [id number] Use it with Latus once a day Angela arteaga Glucose Blood in vitro Strip 09-01 00:00: 00 Yes [id number] Check BS twice daily. Angela Orantes Blood Glucose Monitoring Suppl (BLOOD GLUCOSE METER) does not apply Kit 09-01 00:00: 00 Yes [id number] Use as instructed Angela arteaga Immunizations Ordered Immunization Name Filled Immunization Name Date Status Comments Source Influenza Virus Vaccine, age 6 months and up 2021-10-14 00:00:00 Completed Angela Orantes - External Influenza Virus Vaccine, age 6 months and up 2021-10-14 00:00:00 Completed Angela Beattyold - External Influenza Virus Vaccine, age 6 months and up 2021-10-14 00:00:00 Completed Angela Orantes - External Influenza Virus Vaccine, age 6 months and up 2021-10-14 00:00:00 Completed Angela Orantes - External Influenza Virus Vaccine, age 6 months and up 2021-10-14 00:00:00 Completed Angela Guerreroybold - External Influenza Virus Vaccine, age 6 months and up 2021-10-14 00:00:00 Completed Angela Guerreroybold - External Influenza Virus Vaccine, age 6 months and up 2021-10-14 00:00:00 Completed Angela Orantes - External Influenza Virus Vaccine, age 6 months and up 2021-10-14 00:00:00 Completed Angela Orantes - External Influenza Virus Vaccine, Unspecified Formulation 2019-12-08 00:00:00 Completed Angela Orantes - External Influenza Virus Vaccine, Unspecified Formulation 2019-12-08 00:00:00 Completed Angela Orantes - External Influenza Virus Vaccine, Unspecified Formulation 2019-12-08 00:00:00 Completed Angela Orantes - External Influenza Virus Vaccine, Unspecified Formulation 2019-12-08 00:00:00 Completed Angela Orantes - External Influenza Virus Vaccine, Unspecified Formulation 2019-12-08 00:00:00 Completed Angela Orantes - External Influenza Virus Vaccine, Unspecified Formulation 2019-12-08 00:00:00 Completed Angela Seybold - External Influenza Virus Vaccine, Unspecified Formulation 2019-12-08 00:00:00 Completed Angela Seybold - External Influenza Virus Vaccine, Unspecified Formulation 2019-12-08 00:00:00 Completed Angela Seybold - External Influenza Virus Vaccine, No Preserv, age 6 months and up 2019-01-11 00:00:00 Completed Angela Seybold - External Influenza Virus Vaccine, No Preserv, age 6 months and up 2019-01-11 00:00:00 Completed Angela Seybold - External Influenza Virus Vaccine, No Preserv, age 6 months and up 2019-01-11 00:00:00 Completed Angela Seybold - External Influenza Virus Vaccine, No Preserv, age 6 months and up 2019-01-11 00:00:00 Completed Angela Seybold - External Influenza Virus Vaccine, No Preserv, age 6 months and up 2019-01-11 00:00:00 Completed Angela Seybold - External Influenza Virus Vaccine, No Preserv, age 6 months and up 2019-01-11 00:00:00 Completed Angela Seybold - External Influenza Virus Vaccine, No Preserv, age 6 months and up 2019-01-11 00:00:00 Completed Angela Seybold - External Influenza Virus Vaccine, No Preserv, age 6 months and up 2019-01-11 00:00:00 Completed Angela Seybold - External Influenza Virus Vaccine, No Preserv, age 6 months and up 2019-01-11 00:00:00 Completed Angela Seybold Influenza Virus Vaccine, No Preserv, age 6 months and up 2019-01-11 00:00:00 Completed Angela Seybold Influenza Virus Vaccine, age 6 months and up 2017-11-15 00:00:00 Completed Angela Seybold - External Influenza Virus Vaccine, age 6 months and up 2017-11-15 00:00:00 Completed Angela Seybold - External Influenza Virus Vaccine, age 6 months and up 2017-11-15 00:00:00 Completed Angela Seybold - External Influenza Virus Vaccine, age 6 months and up 2017-11-15 00:00:00 Completed Angela Seybold - External Influenza Virus Vaccine, age 6 months and up 2017-11-15 00:00:00 Completed Angela Seybold - External Influenza Virus Vaccine, age 6 months and up 2017-11-15 00:00:00 Completed Angela Seybold - External Influenza Virus Vaccine, age 6 months and up 2017-11-15 00:00:00 Completed Angela Seybold - External Influenza Virus Vaccine, age 6 months and up 2017-11-15 00:00:00 Completed Angela Seybold - External Influenza Virus Vaccine, age 6 months and up 2017-11-15 00:00:00 Completed Angela Seybold Influenza Virus Vaccine, age 6 months and up 2017-11-15 00:00:00 Completed Angela Seybold Hepatitis B,unspecified 2017-05-05 00:00:00 Completed Angela Seybold - External Hepatitis B,unspecified 2017-05-05 00:00:00 Completed Angela Seybold - External Hepatitis B,unspecified 2017-05-05 00:00:00 Completed Angela Seybold - External Hepatitis B,unspecified 2017-05-05 00:00:00 Completed Angela Seybold - External Hepatitis B,unspecified 2017-05-05 00:00:00 Completed Angela Seybold - External Hepatitis B,unspecified 2017-05-05 00:00:00 Completed Angela Seybold - External Hepatitis B,unspecified 2017-05-05 00:00:00 Completed Angela Seybold - External Hepatitis B,unspecified 2017-05-05 00:00:00 Completed Angela Seybold Hepatitis B,unspecified 2017-05-05 00:00:00 Completed Angela Seybold - External Hepatitis B,unspecified 2017-05-05 00:00:00 Completed Angela Seybold Hepatitis B,unspecified 2016-05-12 00:00:00 Completed Angela Seybold - External Hepatitis B,unspecified 2016-05-12 00:00:00 Completed Angela Seybold - External Hepatitis B,unspecified 2016-05-12 00:00:00 Completed Angela Seybold - External Hepatitis B,unspecified 2016-05-12 00:00:00 Completed Angela Seybold - External Hepatitis B,unspecified 2016-05-12 00:00:00 Completed Angela Seybold - External Hepatitis B,unspecified 2016-05-12 00:00:00 Completed Angela Seybold - External Hepatitis B,unspecified 2016-05-12 00:00:00 Completed Angela Seybold - External Hepatitis B,unspecified 2016-05-12 00:00:00 Completed Angela Seybold Hepatitis B,unspecified 2016-05-12 00:00:00 Completed Angela Seybold - External Hepatitis B,unspecified 2016-05-12 00:00:00 Completed Angela Seybold Influenza Virus Vaccine, age 6 months and up 2015-02-27 00:00:00 Completed Angela Seybold - External Influenza Virus Vaccine, age 6 months and up 2015-02-27 00:00:00 Completed Angela Seybold - External Influenza Virus Vaccine, age 6 months and up 2015-02-27 00:00:00 Completed Angela Seybold - External Influenza Virus Vaccine, age 6 months and up 2015-02-27 00:00:00 Completed Angela Seybold - External Influenza Virus Vaccine, age 6 months and up 2015-02-27 00:00:00 Completed Angela Seybold - External Influenza Virus Vaccine, age 6 months and up 2015-02-27 00:00:00 Completed Angela Seybold - External Influenza Virus Vaccine, age 6 months and up 2015-02-27 00:00:00 Completed Angela Seybold - External Influenza Virus Vaccine, age 6 months and up 2015-02-27 00:00:00 Completed Angela Seybold Influenza Virus Vaccine, age 6 months and up 2015-02-27 00:00:00 Completed Angela Seybold - External Influenza Virus Vaccine, age 6 months and up 2015-02-27 00:00:00 Completed Angela Seybold Tdap- (Boostrix, Adacel) 2014-08-12 00:00:00 Completed Angela Seybold - External Pneumococcal Vaccine, Polysaccharide 2014-08-12 00:00:00 Completed Angela Seybold - External Tdap- (Boostrix, Adacel) 2014-08-12 00:00:00 Completed Angela Seybold - External Pneumococcal Vaccine, Polysaccharide 2014-08-12 00:00:00 Completed Angela Seybold - External Tdap- (Boostrix, Adacel) 2014-08-12 00:00:00 Completed Angela Seybold - External Pneumococcal Vaccine, Polysaccharide 2014-08-12 00:00:00 Completed Angela Seybold - External Tdap- (Boostrix, Adacel) 2014-08-12 00:00:00 Completed Angela Seybold - External Pneumococcal Vaccine, Polysaccharide 2014-08-12 00:00:00 Completed Angela Seybold - External Tdap- (Boostrix, Adacel) 2014-08-12 00:00:00 Completed Angela Seybold - External Pneumococcal Vaccine, Polysaccharide 2014-08-12 00:00:00 Completed Angela Seybold - External Tdap- (Boostrix, Adacel) 2014-08-12 00:00:00 Completed Angela Seybold - External Pneumococcal Vaccine, Polysaccharide 2014-08-12 00:00:00 Completed Angela Seybold - External Tdap- (Boostrix, Adacel) 2014-08-12 00:00:00 Completed Angela Seybold - External Pneumococcal Vaccine, Polysaccharide 2014-08-12 00:00:00 Completed Nagela Seybold - External Tdap- (Boostrix, Adacel) 2014-08-12 00:00:00 Completed Angela Seybold Pneumococcal Vaccine, Polysaccharide 2014-08-12 00:00:00 Completed Angela Seybold Tdap- (Boostrix, Adacel) 2014-08-12 00:00:00 Completed Angela Seybold - External Pneumococcal Vaccine, Polysaccharide 2014-08-12 00:00:00 Completed Angela Seybold - External Tdap- (Boostrix, Adacel) 2014-08-12 00:00:00 Completed Angela Guerreroybold Pneumococcal Vaccine, Polysaccharide 2014-08-12 00:00:00 Completed Angela ybold Tdap- (Boostrix, Adacel) Unknown Completed Angela Seybold - External Pneumococcal Vaccine, Polysaccharide Unknown Completed Angela Beattyol d - External Influenza Virus Vaccine, age 6 months and up Unknown Completed Angela Guerreroybold - External Hepatitis B,unspecified Unknown Completed Angela Guerreroybold - External Influenza Virus Vaccine, No Preserv, age 6 months and up Unknown Completed Angela farmerbold - External Influenza Virus Vaccine, Unspecified Formulation Unknown Completed Angela ybold - External Tdap- (Boostrix, Adacel) Unknown Completed Angela Guerreroybold - External Pneumococcal Vaccine, Polysaccharide Unknown Completed Angela Beattyol d - External Influenza Virus Vaccine, age 6 months and up Unknown Completed Angela Seybold - External Hepatitis B,unspecified Unknown Completed Angela Seybold - External Influenza Virus Vaccine, No Preserv, age 6 months and up Unknown Completed Angela S eybold - External Influenza Virus Vaccine, Unspecified Formulation Unknown Completed Angela Seybold - External Tdap- (Boostrix, Adacel) Unknown Completed Angela Seybold - External Pneumococcal Vaccine, Polysaccharide Unknown Completed Angela Seybol d - External Influenza Virus Vaccine, age 6 months and up Unknown Completed Angela Seybold - External Hepatitis B,unspecified Unknown Completed Angela Seybold - External Influenza Virus Vaccine, No Preserv, age 6 months and up Unknown Completed Angela S eybold - External Influenza Virus Vaccine, Unspecified Formulation Unknown Completed Angela Seybold - External Tdap- (Boostrix, Adacel) Unknown Completed Angela Seybold - External Pneumococcal Vaccine, Polysaccharide Unknown Completed Angela Seybol d - External Influenza Virus Vaccine, age 6 months and up Unknown Completed Angela Seybold - External Hepatitis B,unspecified Unknown Completed Angela Seybold - External Influenza Virus Vaccine, No Preserv, age 6 months and up Unknown Completed Angela S eybold - External Influenza Virus Vaccine, Unspecified Formulation Unknown Completed Angela Seybold - External Tdap- (Boostrix, Adacel) Unknown Completed Angela Seybold - External Pneumococcal Vaccine, Polysaccharide Unknown Completed Angela Seybol d - External Influenza Virus Vaccine, age 6 months and up Unknown Completed Angela Seybold - External Hepatitis B,unspecified Unknown Completed Angela Seybold - External Influenza Virus Vaccine, No Preserv, age 6 months and up Unknown Completed Angela S eybold - External Influenza Virus Vaccine, Unspecified Formulation Unknown Completed Angela Seybold - External Tdap- (Boostrix, Adacel) Unknown Completed Angela Seybold - External Pneumococcal Vaccine, Polysaccharide Unknown Completed Angela Seybol d - External Influenza Virus Vaccine, age 6 months and up Unknown Completed Angela Seybold - External Hepatitis B,unspecified Unknown Completed Angela Seybold - External Influenza Virus Vaccine, No Preserv, age 6 months and up Unknown Completed Angela S eybold - External Influenza Virus Vaccine, Unspecified Formulation Unknown Completed Angela Seybold - External Tdap- (Boostrix, Adacel) Unknown Completed Angela Seybold - External Pneumococcal Vaccine, Polysaccharide Unknown Completed Angela Beattyol d - External Influenza Virus Vaccine, age 6 months and up Unknown Completed Angela Orantes - External Hepatitis B,unspecified Unknown Completed Angela Beattyold - External Influenza Virus Vaccine, No Preserv, age 6 months and up Unknown Completed Angela Gauthier eybold - External Influenza Virus Vaccine, Unspecified Formulation Unknown Completed Angela Orantes - External Tdap- (Boostrix, Adacel) Unknown Completed Angela Orantes - External Pneumococcal Vaccine, Polysaccharide Unknown Completed Angela Beattyol d - External Influenza Virus Vaccine, age 6 months and up Unknown Completed Angela Orantes - External Hepatitis B,unspecified Unknown Completed Angela Beattyold - External Influenza Virus Vaccine, No Preserv, age 6 months and up Unknown Completed Angela farmerbold - External Influenza Virus Vaccine, Unspecified Formulation Unknown Completed Angela Orantes - External Vital Signs Vital Name Observation Time Observation Value Comments S ource Body weight 2024-01-17 16:31:00 100.245 kg Mariely ey Seybold - External BMI 2024-01-17 16:31:00 31.71 kg/m2 Mariely ey Seybold - External Body height 2023-11-28 20:09:00 177.8 cm Mariely ey Seybold - External Body weight 2023-11-28 20:09:00 100.245 kg Mariely ey Seybold - External BMI 2023-11-28 20:09:00 31.71 kg/m2 Mariely ey Seybold - External Systolic blood pressure 2023-10-20 06:00:00 140 mm[Hg] [facility] Diastolic blood pressure 2023-10-20 06:00:00 90 mm[Hg] [facility] Heart rate 2023-10-20 06:00:00 86 /min [facility] Body temperature 2023-10-20 06:00:00 36.78 Berta [facility] Respiratory rate 2023-10-20 06:00:00 18 /min [facility] Oxygen saturation in Arterial blood by Pulse oximetry 2023-10-20 06:00:00 97 /min [facility] Body height 2023-10-20 02:36:00 177.8 cm [facility] Body weight 2023-10-20 02:36:00 97.977 kg [facility] BMI 2023-10-20 02:36:00 30.99 kg/m2 [facility] Systolic blood pressure 2023-06-21 20:13:00 110 mm[Hg] Angela Seybo ld - External Diastolic blood pressure 2023-06-21 20:13:00 74 mm[Hg] Angela Seybo ld - External Heart rate 2023-06-21 20:13:00 84 /min Kelse y Seybold - External Body temperature 2023-06-21 20:13:00 36.28 Berta Angela Seybold - External Respiratory rate 2023-06-21 20:13:00 14 /min Angela Seybold - External Body height 2023-06-21 20:13:00 180.3 cm Mariely ey Seybold - External Body weight 2023-06-21 20:13:00 100.245 kg Mariely ey Seybold - External BMI 2023-06-21 20:13:00 30.82 kg/m2 Mariely ey Seybold - External Systolic blood pressure 2023-05-10 19:37:00 126 mm[Hg] Angela Seybo ld - External Diastolic blood pressure 2023-05-10 19:37:00 80 mm[Hg] Angela Seybo ld - External Heart rate 2023-05-10 19:37:00 82 /min Kelse y Seybold - External Body temperature 2023-05-10 19:37:00 35.94 Berta Angela Seybold - External Respiratory rate 2023-05-10 19:37:00 14 /min Angela Seybold - External Body height 2023-05-10 19:37:00 180.3 cm Mariely ey Seybold - External Body weight 2023-05-10 19:37:00 98.431 kg Mariely ey Seybold - External BMI 2023-05-10 19:37:00 30.27 kg/m2 Mariely ey Seybold - External Systolic blood pressure 2023-04-12 21:10:00 100 mm[Hg] Angela Seybo ld - External Diastolic blood pressure 2023-04-12 21:10:00 68 mm[Hg] Angela Seybo ld - External Heart rate 2023-04-12 21:10:00 89 /min Joshse y Seybold - External Body temperature 2023-04-12 21:10:00 35.78 Berta Angela Seybold - External Respiratory rate 2023-04-12 21:10:00 15 /min Angela Guerreroybold - External Body height 2023-04-12 21:10:00 180.3 cm Mariely farmer Seybold - External Body weight 2023-04-12 21:10:00 97.523 kg Mariely ey Seybold - External BMI 2023-04-12 21:10:00 29.99 kg/m2 Mariely ey Seybold - External Systolic blood pressure 2022-12-15 19:40:00 128 mm[Hg] [facility] Diastolic blood pressure 2022-12-15 19:40:00 94 mm[Hg] [facility] Heart rate 2022-12-15 19:40:00 83 /min [facility] temperature 2022-12-15 19:40:00 36.83 Berta [facility] Respiratory rate 2022-12-15 19:40:00 16 /min [facility] Body height 2022-12-15 19:40:00 180.3 cm [facility] Body weight 2022-12-15 19:40:00 107.956 kg [facility] BMI 2022-12-15 19:40:00 33.19 kg/m2 [facility] Oxygen saturation in Arterial blood by Pulse oximetry 2022-12-15 19:40:00 97 /min [facility] Systolic blood pressure 2022-12-05 15:55:00 130 mm[Hg] Angela Guerreroybo ld - External Diastolic blood pressure 2022-12-05 15:55:00 86 mm[Hg] Angela Guerreroybo ld - External Heart rate 2022-12-05 15:55:00 76 /min Oumar y Seybold - External Body temperature 2022-12-05 15:55:00 35.67 Berta Angela Seybold - External Respiratory rate 2022-12-05 15:55:00 14 /min Angela Seybold - External Body height 2022-12-05 15:55:00 180.3 cm Mariely ey Seybold - External Body weight 2022-12-05 15:55:00 103.42 kg Mariely ey Seybold - External BMI 2022-12-05 15:55:00 31.80 kg/m2 Mariely ey Seybold - External Systolic blood pressure 2022-09-24 05:00:00 120 mm[Hg] [facility] Diastolic blood pressure 2022-09-24 05:00:00 77 mm[Hg] [facility] Heart rate 2022-09-24 05:00:00 73 /min [facility] Respiratory rate 2022-09-24 05:00:00 16 /min [facility] Oxygen saturation in Arterial blood by Pulse oximetry 2022-09-24 05:00:00 96 /min [facility] Body temperature 2022-09-24 02:51:00 36.78 Berta [facility] Body height 2022-09-24 02:51:00 177.8 cm [facility] Body weight 2022-09-24 02:51:00 99.791 kg [facility] BMI 2022-09-24 02:51:00 31.57 kg/m2 [facility] Systolic blood pressure 2022-09-02 19:48:00 122 mm[Hg] Angela ybo ld - External Diastolic blood pressure 2022-09-02 19:48:00 82 mm[Hg] Angela ybo ld - External Heart rate 2022-09-02 19:48:00 84 /min Kelse y Seybold - External Body temperature 2022-09-02 19:48:00 37 Berta Angela Seybold - External Respiratory rate 2022-09-02 19:48:00 16 /min Angela Seybold - External Body height 2022-09-02 19:48:00 180.3 cm Mariely ey Seybold - External Body weight 2022-09-02 19:48:00 101.606 kg Mariely ey Seybold - External BMI 2022-09-02 19:48:00 31.24 kg/m2 Mariely ey Seybold - External Systolic blood pressure 2022-07-15 15:52:00 102 mm[Hg] Angela Seybo ld - External Diastolic blood pressure 2022-07-15 15:52:00 70 mm[Hg] Angela Seybo ld - External Heart rate 2022-07-15 15:52:00 84 /min Kelse y Seybold - External Body temperature 2022-07-15 15:52:00 36.5 Berta Angela Seybold - External Respiratory rate 2022-07-15 15:52:00 15 /min Angela Seybold - External Body height 2022-07-15 15:52:00 177.8 cm Mariely ey Seybold - External Body weight 2022-07-15 15:52:00 107.049 kg Mariely ey Seybold - External BMI 2022-07-15 15:52:00 33.86 kg/m2 Mariely ey Seybold - External Systolic blood pressure 2022-06-01 16:33:00 122 mm[Hg] Angela Seybo ld - External Diastolic blood pressure 2022-06-01 16:33:00 74 mm[Hg] Angela Seybo ld - External Heart rate 2022-06-01 16:33:00 67 /min Kelse y Seybold - External Body temperature 2022-06-01 16:33:00 36.56 Berta Angela Seybold - External Respiratory rate 2022-06-01 16:33:00 18 /min Angela Seybold - External Body height 2022-06-01 16:33:00 177.8 cm Mariely ey Seybold - External Body weight 2022-06-01 16:33:00 102.513 kg Mariely ey Seybold - External BMI 2022-06-01 16:33:00 32.43 kg/m2 Mariely ey Seybold - External Systolic blood pressure 2022-05-11 18:50:00 130 mm[Hg] Angela Seybo ld - External Diastolic blood pressure 2022-05-11 18:50:00 80 mm[Hg] Angela Seybo ld - External Heart rate 2022-05-11 18:50:00 75 /min Kelse y Seybold - External Body temperature 2022-05-11 18:50:00 37.11 Berta Angela Seybold - External Respiratory rate 2022-05-11 18:50:00 18 /min Angela Seybold - External Body height 2022-05-11 18:50:00 177.8 cm Mariely ey Seybold - External Body weight 2022-05-11 18:50:00 102.967 kg Mariely ey Seybold - External BMI 2022-05-11 18:50:00 32.57 kg/m2 Mariely ey Seybold - External Systolic blood pressure 2022-05-10 18:47:00 128 mm[Hg] Angela Seybo ld - External Diastolic blood pressure 2022-05-10 18:47:00 84 mm[Hg] Angela Seybo ld - External Heart rate 2022-05-10 18:47:00 69 /min Oumar silver Seybold - External Body temperature 2022-05-10 18:47:00 35.44 Berta Angela Guerreroybold - External Respiratory rate 2022-05-10 18:47:00 18 /min Angela Seybold - External Body height 2022-05-10 18:47:00 177.8 cm Mariely ey Seybold - External Body weight 2022-05-10 18:47:00 102.967 kg Mariely ey Seybold - External BMI 2022-05-10 18:47:00 32.57 kg/m2 Mariely ey Seybold - External Oxygen saturation in Arterial blood by Pulse oximetry 2022-05-10 18:47:00 99 /min Angela Beattyo ld - External Systolic blood pressure 2022-05-07 00:40:00 156 mm[Hg] [facility] Diastolic blood pressure 2022-05-07 00:40:00 106 mm[Hg] [facility] Heart rate 2022-05-07 00:40:00 83 /min [facility] Body temperature 2022-05-07 00:40:00 37.22 Berta [facility] Respiratory rate 2022-05-07 00:40:00 18 /min [facility] Body height 2022-05-07 00:40:00 177.8 cm [facility] Body weight 2022-05-07 00:40:00 102.059 kg [facility] BMI 2022-05-07 00:40:00 32.28 kg/m2 [facility] Oxygen saturation in Arterial blood by Pulse oximetry 2022-05-07 00:40:00 99 /min [facility] Systolic blood pressure 2022-03-08 20:47:00 130 mm[Hg] Angela Seybo ld - External Diastolic blood pressure 2022-03-08 20:47:00 78 mm[Hg] Angela Seybo ld - External Heart rate 2022-03-08 20:47:00 56 /min Kel y Seybold - External Body temperature 2022-03-08 20:47:00 36.06 Berta Angela Seybold - External Respiratory rate 2022-03-08 20:47:00 14 /min Angela Seybold - External Body height 2022-03-08 20:47:00 180.3 cm Mariely ey Seybold - External Body weight 2022-03-08 20:47:00 111.131 kg Mariely ey Seybold - External BMI 2022-03-08 20:47:00 34.17 kg/m2 Mariely ey Seybold - External Systolic blood pressure 2021-10-10 17:00:00 138 mm[Hg] [facility] Diastolic blood pressure 2021-10-10 17:00:00 88 mm[Hg] [facility] Heart rate 2021-10-10 17:00:00 88 [facility] 2021-10-10 17:00:00 36.39 Berta [facility] Respiratory rate 2021-10-10 17:00:00 14 /min [facility] [facility] Oxygen saturation in Arterial blood by Pulse oximetry 2021-10-10 17:00:00 97 /min [facility] Body height 2021-10-10 15:31:00 180.3 cm [facility] Body weight 2021-10-10 15:31:00 104.327 kg [facility] BMI 2021-10-10 15:31:00 32.08 kg/m2 [facility] Systolic blood pressure 2020-12-14 22:06:00 124 mm[Hg] Angela Seybo ld Diastolic blood pressure 2020-12-14 22:06:00 80 mm[Hg] Angela atkins Heart rate 2020-12-14 22:06:00 90 /min Kelse adrianne Orantes Body temperature 2020-12-14 22:06:00 36.5 Berta Angela Orantes Respiratory rate 2020-12-14 22:06:00 20 /min Angela Orantes Body height 2020-12-14 22:06:00 180.3 cm Mariely ey Seybold Body weight 2020-12-14 22:06:00 109.317 kg Mariely ey ybold BMI 2020-12-14 22:06:00 33.61 kg/m2 Mariely ey ybold Oxygen saturation in Arterial blood by Pulse oximetry 2020-12-14 22:06:00 98 /min Angela atkins Body height 2020-10-27 19:11:00 180.3 cm Mariely ey yblatasha Body weight 2020-10-27 19:11:00 112.492 kg Mariely ey ybold BMI 2020-10-27 19:11:00 34.59 kg/m2 Mariely ey ybold Systolic blood pressure 2020-06-26 18:00:00 126 mm[Hg] [facility] Diastolic blood pressure 2020-06-26 18:00:00 84 mm[Hg] [facility] Heart rate 2020-06-26 18:00:00 75 /min [facility] Respiratory rate 2020-06-26 18:00:00 13 /min [facility] Oxygen saturation in Arterial blood by Pulse oximetry 2020-06-26 18:00:00 100 /min [facility] Body temperature 2020-06-26 16:26:00 37.11 Berta [facility] Body weight 2020-06-26 16:26:00 113.853 kg [facility] BMI 2020-06-26 16:26:00 35.01 kg/m2 [facility] Systolic blood pressure 2020-01-08 07:01:00 120 mm[Hg] [facility] Diastolic blood pressure 2020-01-08 07:01:00 85 mm[Hg] [facility] Heart rate 2020-01-08 07:01:00 75 /min [facility] Respiratory rate 2020-01-08 07:01:00 17 /min [facility] Oxygen saturation in Arterial blood by Pulse oximetry 2020-01-08 07:01:00 98 /min [facility] Body temperature 2020-01-08 04:09:00 36.67 Berta [facility] Body height 2020-01-08 04:09:00 180.3 cm [facility] Body weight 2020-01-08 04:09:00 108.863 kg [facility] BMI 2020-01-08 04:09:00 33.47 kg/m2 [facility] Procedures Procedure Date / Time Performed Performing Clinician Source EKG-12 LEAD 2023-10-20 06:02:37 Boo Poe [facility] TROPONIN I 2023-10-20 04:40:00 Boo Poe [facility] XR CHEST 1 VW 2023-10-20 03:34:02 Matti [facility] TROPONIN I 2023-10-20 02:53:00 Boo Poe [facility] BASIC METABOLIC PANEL (NA, K, CL, CO2, GLUCOSE, BUN, CREATININE, CA) 2023-10-20 02:53:00 [facility] CBC WITH DIFF 2023-10-20 02:53:00 [facility] N-TERMINAL PRO-BNP 2023-10-20 02:53:00 Vincenzo Poe [facility] ASSIGNMENT OF BENEFITS 2022-12-15 21:05:35 Docto r Unassigned, Jameson [facility] RAPID INFLUENZA A/B 2022-12-15 19:41:00 Aditya Lux [facility] COVID-19 (ID NOW RAPID TESTING) 2022-12-15 19:41:00 Prateek Lux [facility] CONSENT/REFUSAL FOR DIAGNOSIS AND TREATMENT 2022-12-15 19:11:55 Doctor Unassigned, Jameson [facility] XR CHEST 2 VW 2022-09-24 04:37:50 Ronald Guthrie [facility] TROPONIN I 2022-09-24 03:53:00 Ronald Guthrie [facility] COMP. METABOLIC PANEL (38885) 2022-09-24 03:53:00 Ronald Guthrie [facility] LIPID PANEL (05717)(TOTAL CHOLESTEROL, TRIGLYCERIDES, HDL) 2022-09-24 03:53:00 Ronald Guthrie [facility] CBC WITH DIFF 2022-09-24 03:53:00 Ronald Guthrie [facility] CONSENT/REFUSAL FOR DIAGNOSIS AND TREATMENT 2022-09-24 02:51:21 Doctor Unassigned, Jameson [facility] LUMBAR SPINE 2 VIEWS 2022-05-10 19:35:16 Reva Scanlon - External US TESTICULAR TORSION 2022-05-07 03:01:02 Shelley Morin [facility] URINALYSIS 2022-05-07 01:28:00 Flakito Morin [facility] NOTICE OF PRIVACY PRACTICES 2022-05-07 00:35:56 Doctor Unassigned, Jameson [facility] CONSENT/REFUSAL FOR DIAGNOSIS AND TREATMENT 2022-05-07 00:35:15 Doctor Unassigned, Jameson [facility] CT ABDOMEN PELVIS W CONTRAST 2021-10-10 16:19:04 Chantal Alejandra [facility] LIPASE 2021-10-10 15:59:00 Chnatal Alejandra [facility] COMP. METABOLIC PANEL ([id number]) 2021-10-10 15:59:00 Chantal Alejandra [facility] CBC WITH DIFF 2021-10-10 15:59:00 [facility] 2021-10-10 15:59:00 Chantal Alejandra [facility] CONSENT/REFUSAL FOR DIAGNOSIS AND TREATMENT 2021-10-10 15:40:41 Doctor Unassigned, Jameson [facility] REAGENT STRIP/BLOOD GLUCOSE 2020-12-14 22:13:[address] HEAD WO CONTRAST 2020-06-26 17:35:02 Boni Issa [facility] LIPASE 2020-06-26 17:13:00 Carmen Issa [facility] TROPONIN I 2020-06-26 17:13:00 Carmen Issa [facility] COMP. METABOLIC PANEL ([id number]) 2020-06-26 17:13:00 Carmen Issa [facility] CBC WITH DIFF 2020-06-26 17:13:00 Carmen Issa [facility] XR CHEST 1 VW 2020-06-26 17:11:55 Carmen Issa [facility] NOTICE OF PRIVACY PRACTICES 2020-06-26 16:18:01 Doctor Unassigned, Jameson [facility] CONSENT/REFUSAL FOR DIAGNOSIS AND TREATMENT 2020-06-26 16:17:29 Doctor Unassigned, Jameson [facility] TROPONIN I 2020-01-08 06:06:00 Flakito Morin [facility] COVID-19 (ID NOW RAPID TESTING) 2020-01-08 05:23:00 Flakito Morin [facility] XR CHEST 1 VW 2020-01-08 04:56:49 Flakito Morin [facility] LIPASE 2020-01-08 04:13:00 Flakito Morin [facility] TROPONIN I 2020-01-08 04:13:00 Flakito Morin [facility] COMP. METABOLIC PANEL (64649) 2020-01-08 04:13:00 Flakito Morin [facility] CBC WITH DIFF 2020-01-08 04:13:00 Flakito Morin [facility] PROTHROMBIN TIME / INR 2020-01-08 04:13:00 Ana Morin [facility] ACTIVATED PARTIAL THRMPLAS JOSH 2020-01-08 04:13:00 Flakito Morin [facility] POCT GLUCOSE (AUTOMATED) 2020-01-08 04:03:00 Doctor Unassigned, Jameson [facility] NOTICE OF PRIVACY PRACTICES 2020-01-08 03:54:44 Doctor Unassigned, Jameson [facility] CONSENT/REFUSAL FOR DIAGNOSIS AND TREATMENT 2020-01-08 03:54:26 Doctor Unassigned, Jameson [facility] Encounters Start Date/Time End Date/Time Encounter Type Admission Type Attending [facility] Facility Care Department Encounter ID Source 2024-03-06 09:00:00 Inpatient Elder Tran [facility] [id number] [facility] 2024-03-19 14:45:00 2024-03-19 14:45:00 Outpatient LAURENT ShermanELDER [id number] Angela Orantes 2024-03-08 10:00:00 2024-03-08 10:00:00 Outpatient LAURENT ELDER Sherman [id number] [facility] 2024-02-08 00:00:00 2024-02-08 00:00:00 Outpatient MD ANGELA GIBSON [id number] Angela yblatasha 2024-02-08 00:00:00 2024-02-08 00:00:00 Outpatient MD ANGELA GIBSON [id number] Angela yblatasha 2024-02-08 00:00:00 2024-02-08 00:00:00 Outpatient LAURENT ELDER Sherman [id number] Angela Orantes 2024-02-02 00:00:00 2024-02-02 00:00:00 Outpatient AISHA CROSS [id number] Angela Seyblatasha 2024-01-26 00:00:00 2024-01-26 00:00:00 Outpatient LAURENT ShermanELDER [id number] Angela yblatasha 2024-01-26 00:00:00 2024-01-26 00:00:00 Outpatient LAURENT ShermanELEDR [id number] [facility] 2024-01-17 10:45:00 2024-01-17 10:45:00 Outpatient ELDER INFANTE ANGELA RUDOLPH [id number] Angela Guerrerolatasha 2024-01-17 00:00:00 2024-01-17 00:00:00 Outpatient DEL PAL ANGELA RUDOLPH [id number] Angela latasha 2024-01-10 00:00:00 2024-01-10 00:00:00 Outpatient DEL PAL ANGELA RUDOLPH [id number] [facility] 2024-01-03 00:00:00 2024-01-03 00:00:00 Outpatient ANGELA RUDOLPH [id number] [facility] 2024-01-01 09:43:00 2024-01-01 09:43:00 Outpatient AUBREY INFANTELAWRENCE RUDOLPH [id number] [facility] 2024-01-01 05:42:00 2024-01-01 05:42:00 Outpatient Elder Saw[facility] [id number] [address] [place] [address] 2024-01-01 00:00:00 2024-01-01 00:00:00 Outpatient MD ANGELA GIBSON [id number] [facility] 2023-12-25 00:00:00 2023-12-25 00:00:00 Outpatient MD ANGELA GIBSON [id number] [facility] 2023-12-21 00:00:00 2023-12-21 00:00:00 Outpatient ANGELA RUDOLPH [id number] [facility] 2023-12-20 00:00:00 2023-12-20 00:00:00 Outpatient LAURENT ShermanELDER [id number] [facility] 2023-11-28 15:15:00 2023-11-28 15:15:00 Outpatient LAURENT ShermanELDER [id number] [facility] 2023-11-15 00:00:00 2023-11-15 00:00:00 Outpatient MD ANGELA GIBSON [id number] [facility] 2023-11-15 00:00:00 2023-11-15 00:00:00 Outpatient ELDER INFANTE ANGELA RUDOLPH [id number] [facility] 2023-11-13 00:00:00 2023-11-13 00:00:00 Outpatient ALLANDEL Arteaga ANGELA RUDOLPH [id number] [facility] 2023-11-13 00:00:00 2023-11-13 00:00:00 Outpatient ELIAN COUGHLIN [id number] [facility] 2023-11-10 15:05:00 2023-11-10 15:05:00 Outpatient LAB90 ANGELA RUDOLPH [id number] [facility] 2023-11-02 15:45:00 2023-11-02 15:45:00 Outpatient GIOVANNADARRICK [id number] [facility] 2023-11-01 15:30:00 2023-11-01 15:30:[address] TECH ANGELA RUDOLPH [id number] [facility] 2023-10-26 15:30:00 2023-10-26 15:30:00 Outpatient GIOVANNA DARRICK RUDOLPH [id number] [facility] 2023-10-25 00:00:00 2023-10-25 00:00:00 Outpatient ANGELA RUDOLPH [id number] [facility] 2023-10-24 16:30:00 2023-10-24 16:30:00 Outpatient ELIAN COUGHLIN [id number] [facility] 2023-10-19 21:39:00 2023-10-20 01:08:00 Emergency X BOO POE [facility] ERT [id number] [facility] 2023-10-19 21:39:00 2023-10-20 01:08:00 Emergency Boo Poe [facility] [id number] [facility] 2023-10-19 15:30:00 2023-10-19 15:30:00 Outpatient GIOVANNA, DARRICK RUDOLPH ANGELA [id number] [facility] 2023-10-19 00:00:00 2023-10-19 00:00:00 Outpatient HUNDL, DEL PRADONABILA RUDOLPH [id number] [facility] 2023-10-12 15:30:00 2023-10-12 15:30:00 Outpatient GIOVANNA, DARRICK RUDOLPH ANGELA [id number] [facility] 2023-10-05 15:30:00 2023-10-05 15:30:00 Outpatient GIOVANNA, DARRICK RUDOLPH ANGELA [id number] [facility] 2023-09-28 15:30:00 2023-09-28 15:30:00 Outpatient GIOVANNA, DARRICK RUDOLPH ANGELA [id number] [facility] 2023-09-22 00:00:00 2023-09-22 00:00:00 Outpatient PREZAS, MELONIE ANGELA RUDOLPH [id number] [facility] 2023-09-21 16:00:00 2023-09-21 16:00:00 Outpatient LAB90 ANGELA ANGELA [id number] [facility] 2023-09-21 15:30:00 2023-09-21 15:30:00 Outpatient GIOVANNA, DARRICK RUDOLPH ANGELA [id number] [facility] 2023-09-14 15:30:00 2023-09-14 15:30:00 Outpatient GIOVANNA, DARRICK ANGELA RUDOLPH [id number] [facility] 2023-09-14 00:00:00 2023-09-14 00:00:00 Outpatient PREZAS, MELONIE PRADONABILA RUDOLPH [id number] [facility] 2023-09-14 00:00:00 2023-09-14 00:00:00 Outpatient HUNDL, DEL ANGELA RUDOLPH [id number] [facility] 2023-09-12 14:45:00 2023-09-12 14:45:00 Outpatient LAB90 ANGELA RUDOLPH [id number] [facility] 2023-09-07 15:30:00 2023-09-07 15:30:00 Outpatient GIOVANNA, DARRICK ANGELA RUDOLPH [id number] [facility] 2023-09-06 00:00:00 2023-09-06 00:00:00 Outpatient HUNDL, DEL ANGELA RUDOLPH [id number] [facility] 2023-09-01 00:00:00 2023-09-01 00:00:00 Outpatient HUNDL, DEL ANGELA [facility]UDOLPH [id number] [facility] 2023-08-31 15:30:00 2023-08-31 15:30:00 Outpatient GIOVANNA, DARRICK ANGELA RUDOLPH [id number] [facility] 2023-08-27 00:00:00 2023-08-27 00:00:00 Outpatient HUNDL, DELAdrianne RUDOLPH [id number] [facility] 2023-08-24 15:30:00 2023-08-24 15:30:00 Outpatient GIOVANNA, [place] ANGELA RUDOLPH [id number] [facility] 2023-08-09 00:00:00 2023-08-09 00:00:00 Outpatient HUNDL, DEL ANGELA RUDOLPH [id number] [facility] 2023-08-08 15:30:00 2023-08-08 15:30:00 Outpatient GIOVANNA, [place] ANGELA RUDOLPH [id number] [facility] 2023-08-08 14:30:00 2023-08-08 14:30:00 Outpatient LABPaulo ANGELA RUDOLPH [id number] [facility] 2023-08-08 00:00:00 2023-08-08 00:00:00 Outpatient HUNDL, DEL RUDOLPH [id number] [facility] 2023-08-08 00:00:00 2023-08-08 00:00:00 Outpatient HUNDL, DEL RUDOLPH [id number] [facility] 2023-08-01 15:30:00 2023-08-01 15:30:00 Outpatient GIOVANNA, DARRICK RUDOLPH [id number] [facility] 2023-07-25 15:30:00 2023-07-25 15:30:00 Outpatient GIOVANNA, DARRICK RUDOLPH [id number] [facility] 2023-07-18 15:30:00 2023-07-18 15:30:00 Outpatient GIOVANNA, DARRICK RUDOLPH ANGELA [id number] [facility] 2023-07-11 15:30:00 2023-07-11 15:30:00 Outpatient GIOVANNA, DARRICK RUDOLPH ANGELA [id number] [facility] 2023-07-06 00:00:00 2023-07-06 00:00:00 Outpatient HUNDL, DEL RUDOLPH [id number] [facility] 2023-07-04 15:30:00 2023-07-04 15:30:00 Outpatient GIOVANNA, DARRICK RUDOLPH ANGELA [id number] [facility] 2023-06-27 15:30:00 2023-06-27 15:30:00 Outpatient GIOVANNA, DARRICK RUDOLPH ANGELA [id number] [facility] 2023-06-21 15:30:00 2023-06-21 15:30:00 Outpatient HUNDL, DEL RUDOLPH [id number] [facility] 2023-06-20 15:45:00 2023-06-20 15:45:00 Outpatient GIOVANNA, DARRICK RUDOLPH ANGELA [id number] [facility] 2023-06-12 15:45:00 2023-06-12 15:45:00 Outpatient GIOVANNA, DARRICK PRADONABILA RUDOLPH [id number] [facility] 2023-06-05 15:45:00 2023-06-05 15:45:00 Outpatient GIOVANNA, DARRICK ANGELA RUDOLPH [id number] Angela Seybold 2023-05-30 00:00:00 2023-05-30 00:00:00 Outpatient HUNDL, DEL RUDOLPH [id number] [facility] 2023-05-29 16:00:00 2023-05-29 16:00:00 Outpatient GIOVANNA, [place] ANGELA RUDOLPH [id number] Angela Seybold 2023-05-29 00:00:00 2023-05-29 00:00:00 Outpatient EVANGELISTA, BRANDON RUDOLPH [id number] Angela Seybold 2023-05-28 00:00:00 2023-05-28 00:00:00 Outpatient HUNDL, DEL RUDOLPH [id number] Angela [facility] 2023-05-22 12:00:00 2023-05-22 12:00:00 Outpatient GIOVANNA, DARRICK ANGELA RUDOLPH [id number] Angela y[facility] 2023-05-13 00:00:00 2023-05-13 00:00:00 Outpatient HUNDL, DEL ANGELA RUDOLPH [id number] [facility] 2023-05-12 09:20:00 2023-05-12 09:20:00 Outpatient LAB90 ANGELA RUDOLPH [id number] Angela [facility] 2023-05-12 00:00:00 2023-05-12 00:00:00 Outpatient HUNDL, DEL ANGELA RUDOLPH [id number] Angela yblatasha 2023-05-11 00:00:00 2023-05-11 00:00:00 Outpatient ANGELA RUDOLPH [id number] Angela yblatasha 2023-05-10 15:00:00 2023-05-10 15:00:00 Outpatient HUNDL, DEL RUDOLPH [id number] [facility] 2023-05-06 00:00:00 2023-05-06 00:00:00 Outpatient HUNDL, DEL ANGELA RUDOLPH [id number] [facility] 2023-05-05 00:00:00 2023-05-05 00:00:00 Outpatient HUNDL, DEL RUDOLPH [id number] [facility] 2023-04-21 00:00:00 2023-04-21 00:00:00 Outpatient HUNDL, DEL RUDOLPH [id number] Angela Seyblatasha 2023-04-18 08:30:00 2023-04-18 08:30:00 Outpatient GIOVANNA, DARRICK ANGELA RUDOLPH [id number] Angela Seybold 2023-04-13 00:00:00 2023-04-13 00:00:00 Outpatient ANGELA RUDOLPH [id number] Angela Seybold 2023-04-12 15:00:00 2023-04-12 15:00:00 Outpatient HUNDL, DEL RUDOLPH [id number] Angela Seybold 2023-03-29 14:30:00 2023-03-29 14:30:00 Outpatient BRANDON EVANGELISTA ANGELA RUDOLPH [id number] [facility] 2023-03-29 00:00:00 2023-03-29 00:00:00 Outpatient HUNDArturo, DEL ANGELA RUDOLPH [id number] [facility] 2023-03-29 00:00:00 2023-03-29 00:00:00 Outpatient BRANDON EVANGELISTA ANGELA RUDOLPH [id number] [facility] 2023-03-25 00:00:00 2023-03-25 00:00:00 Outpatient MARY JO PALAdrianne RUDOLPH [id number] [facility] 2023-03-23 00:00:00 2023-03-23 00:00:00 Outpatient KAE, DEL RUDOLPH [id number] [facility] 2023-03-23 00:00:00 2023-03-23 00:00:00 Outpatient ANGELA RUDOLPH [id number] [facility] 2023-03-16 14:35:00 2023-03-16 14:35:00 Outpatient LAB90 ANGELA RUDOLPH [id number] [facility] 2023-03-15 00:00:00 2023-03-15 00:00:00 Outpatient PAUL TAYLOR ANGELA RUDOLPH [id number] [facility] 2023-02-13 00:00:00 2023-02-13 00:00:00 Outpatient KAE DEL RUDOLPH [id number] [facility] 2023-02-13 00:00:00 2023-02-13 00:00:00 Outpatient CHILOMELONIE Gauthier ANGELA RUDOLPH [id number] [facility] 2022-12-27 00:00:00 2022-12-27 00:00:00 Outpatient ALLANArturo DEL [facility]UDOLPH [id number] [facility] 2022-12-15 13:42:00 2022-12-15 15:04:00 Emergency X PRATEEK LUX ERT [id number] [facility] 2022-12-15 13:42:00 2022-12-15 15:04:00 Emergency Lux, Prateek [facility] [id number] [facility] 2022-12-05 11:45:00 2022-12-05 11:45:00 Outpatient LAB90 ANGELA RUDOLPH [id number] [facility] 2022-12-05 11:00:00 2022-12-05 11:00:00 Outpatient DEL PAL [id number] [facility] 2022-11-10 10:20:00 2022-11-10 10:20:00 Outpatient LAB90 ANGELA RUDOLPH [id number] [facility] 2022-11-10 00:00:00 2022-11-10 00:00:00 Outpatient PAUL TAYLOR [id number] [facility] 2022-11-10 00:00:00 2022-11-10 00:00:00 Outpatient MELONIE HALYE [id number] [facility] 2022-11-06 00:00:00 2022-11-06 00:00:00 Outpatient ASYA LUKE [id number] [facility] 2022-10-24 16:15:00 2022-10-24 16:15:00 Outpatient STEWART MCKEON [id number] [facility] 2022-10-21 09:25:00 2022-10-21 09:25:00 Outpatient LAB90 ANGELA RUDOLPH [id number] [facility] 2022-10-17 16:15:00 2022-10-17 16:15:00 Outpatient STEWART MCKEON [id number] [facility] 2022-10-16 00:00:00 2022-10-16 00:00:00 Outpatient DEL PAL [id number] [facility] 2022-10-03 16:15:00 2022-10-03 16:15:00 Outpatient STEWART MCKEON [id number] [facility] 2022-09-26 16:15:00 2022-09-26 16:15:00 Outpatient FEROZ MCKEONTORIN RUDOLPH [id number] [facility] 2022-09-23 22:05:00 2022-09-24 00:39:00 Emergency X RONALD GUTHRIE [facility] ERT [id number] [facility] 2022-09-23 22:05:00 2022-09-24 00:39:00 Emergency Ronald Guthrie [facility] [id number] [facility] 2022-09-15 16:15:00 2022-09-15 16:15:00 Outpatient MIKE STEWART RUDOLPH [id number] [facility] 2022-09-12 16:15:00 2022-09-12 16:15:00 Outpatient STEWART MCKEON [id number] [facility] 2022-09-08 15:45:00 2022-09-08 15:45:00 Outpatient STEWART MCKEON [id number] [facility] 2022-09-05 16:30:00 2022-09-05 16:30:00 Outpatient MIKE STEWART RUDOLPH [id number] [facility] 2022-09-02 15:30:00 2022-09-02 15:30:00 Outpatient STEWART MCKEON [id number] [facility] 2022-08-31 11:00:00 2022-08-31 11:00:00 Outpatient CIELO TORO [id number] [facility] 2022-07-19 00:00:00 2022-07-19 00:00:00 Outpatient DEL PAL [id number] Angela Seybl[facility] 2022-07-15 11:00:00 2022-07-15 11:00:00 Outpatient DEL PAL [id number] Angela Sey[facility] 2022-07-07 13:00:00 2022-07-07 13:00:00 Outpatient DEL PAL ANGELA [id number] [facility] 2022-06-30 00:00:00 2022-06-30 00:00:00 Outpatient DEL PAL ANGELA RUDOLPH [id number] Angela [facility] 2022-06-16 14:30:00 2022-06-16 14:30:00 Outpatient CHEPETHERESA ANGELA RUDOLPH [id number] [facility] 2022-06-16 10:20:00 2022-06-16 10:20:00 Outpatient VAL ANGELA RUDOLPH [id number] [facility] 2022-06-06 00:00:00 2022-06-06 00:00:00 Outpatient DEL PAL ANGELA RUDOLPH [id number] [facility] 2022-06-03 10:15:00 2022-06-03 10:15:00 [place]patient [place] [id number] [facility]22-[facility]-03 00:00:00 2022-06-03 00:00:00 Outpatient DEL PAL ANGELA RUDOLPH [id number] [facility] 2022-06-03 00:00:00 2022-06-03 00:00:00 Outpatient DEL PAL ANGELA RUDOLPH [id number] [facility] 2022-06-01 13:20:00 2022-06-01 13:20:00 Outpatient ABBE CHADWICK [id number] [facility] 2022-06-01 11:45:00 2022-06-01 11:45:00 Outpatient CIELO TORO [id number] [facility] 2022-05-17 08:45:00 2022-05-17 08:45:00 Outpatient REVA SCANLON [id number] [facility] 2022-05-11 14:30:00 2022-05-11 14:30:00 Outpatient CIELO TORO [id number] [facility] 2022-05-10 14:25:00 2022-05-10 14:25:00 Outpatient ANGELA RUDOLPH [id number] [facility] 2022-05-10 14:00:00 2022-05-10 14:00:00 Outpatient REVA SCANLON ANGELA RUDOLPH [id number] [facility] 2022-05-10 00:00:00 2022-05-10 00:00:00 Outpatient ANGELA RUDOLPH [id number] [facility] 2022-05-06 19:43:00 2022-05-06 23:13:00 Emergency X FLAKITO [facility] ERT [id number] [facility] 2022-05-06 19:43:00 2022-05-06 23:13:00 Emergency Flakito Morin S [facility] 1.2.840.114 350.1.13.10 4.2.7.2.686 [id number] [facility] 2022-05-06 00:00:00 2022-05-06 00:00:00 Orders Only Doctor Unassigned, Jameson [facility] 1.2.840.114 350.1.13.10 4.2.7.2.686 [id number] [facility] 2022-05-02 00:00:00 2022-05-02 00:00:00 Outpatient DEL PAL [id number] [facility] 2022-05-02 00:00:00 2022-05-02 00:00:00 Outpatient RILEY PEARCE [id number] [facility] 2022-04-07 00:00:00 2022-04-07 00:00:00 Outpatient MELONIE HALEY [id number] [facility] 2022-04-06 00:00:00 2022-04-06 00:00:00 Outpatient RILEY PEARCE [id number] [facility] 2022-04-03 00:00:00 2022-04-03 00:00:00 Outpatient DEL PAL [id number] [facility] 2022-03-24 09:40:00 2022-03-24 09:40:00 Outpatient LAB90 ANGELA RUDOLPH [id number] [facility] 2022-03-22 00:00:00 2022-03-22 00:00:00 Outpatient LUKEASYA ANGELA RUDOLPH [id number] [facility] 2022-03-16 00:00:00 2022-03-16 00:00:00 Outpatient HUNDL, DEL RUDOLPH [id number] [facility] 2022-03-10 08:50:00 2022-03-10 08:50:00 Outpatient LAB90 ANGELA RUDOLPH [id number] [facility] 2022-03-08 15:00:00 2022-03-08 15:00:00 Outpatient HUNDL, DEL RUDOLPH [id number] [facility] 2022-03-03 00:00:00 2022-03-03 00:00:00 Outpatient HUNDL, DEL RUDOLPH [id number] [facility] 2022-01-20 00:00:00 2022-01-20 00:00:00 Outpatient HUNDL, DEL RUDOLPH [id number] [facility] 2022-01-20 00:00:00 2022-01-20 00:00:00 Outpatient RILEY PEARCE [id number] [facility] 2022-01-19 14:30:00 2022-01-19 14:30:00 Outpatient LAB90 ANGEAL RUDOLPH [id number] [facility] 2022-01-13 00:00:00 2022-01-13 00:00:00 Outpatient HUNDL, DEL RUDOLPH [id number] [facility] 2021-12-08 00:00:00 2021-12-08 00:00:00 Outpatient HUNDL, DEL RUDOLPH [id number] [facility] 2021-11-09 00:00:00 2021-11-09 00:00:00 Outpatient WARREN GRIFFITH [id number] Angela Sey[facility] 2021-10-21 15:30:00 2021-10-21 15:30:00 Outpatient ANURADHA OCX [id number] Angela Rolanda 2021-10-21 15:00:00 2021-10-21 15:00:00 Outpatient WARREN GRIFFITH ANGELA RUDOLPH [id number] [facility] 2021-10-19 00:00:00 2021-10-19 00:00:00 Outpatient DEL PAL ANGELA RUDOLPH [id number] [facility] 2021-10-18 00:00:00 2021-10-18 00:00:00 Outpatient DEL PAL ANGELA RUDOLPH [id number] [facility] 2021-10-15 00:00:00 2021-10-15 00:00:00 Outpatient DEL PAL ANGELA RUDOLPH [id number] [facility] 2021-10-14 10:15:00 2021-10-14 10:15:00 Outpatient VAL ANGELA RUDOLPH [id number] [facility] 2021-10-14 09:30:00 2021-10-14 10:00:00 Office Visit Del Pal Jackson 1.2.840.114 350.1.13.13 [id number] [id number] [facility] 2021-10-14 00:00:00 2021-10-14 00:00:00 Outpatient RILEY PEARCE [id number] [facility] 2021-10-10 10:32:00 2021-10-10 12:05:00 Emergency X CHANTAL ALEJANDRA [facility] ERT [id number] [facility] 2021-10-10 10:32:00 2021-10-10 12:05:00 Emergency Chantal Alejandra [facility] 1.2.840.114 350.1.13.10 4.2.7.2.686 [id number] [facility] 2021-10-08 00:00:00 2021-10-08 00:00:00 Outpatient RILEY PEARCE [id number] [facility] 2021-08-30 08:00:00 2021-08-30 08:00:00 Outpatient GARLAND LUKE [id number] [facility] 2021-08-16 00:00:00 2021-08-16 00:00:00 Outpatient RILEY PEARCE ANGELA [id number] [facility] 2021-03-08 00:00:00 2021-03-08 00:00:00 Outpatient RILEY PEARCE ANGELA [id number] [facility] 2021-02-18 08:20:00 2021-02-18 08:20:00 Outpatient LAB47 ANGELA ANGELA [id number] [facility] 2020-12-14 15:56:11 2020-12-14 16:11:11 Office Visit Riley Pearce 1.2.840.114 350.1.13.13 [id number] [id number] [facility] 2020-11-16 00:00:00 2020-11-16 00:00:00 Outpatient RILEY PEARCE ANGELA [id number] [facility] 2020-10-27 15:15:00 2020-10-27 15:15:00 Outpatient LAB47 ANGELA ANGELA [id number] [facility] 2020-10-27 14:07:12 2020-10-27 14:37:12 Office Visit Yany Garcia 1.2.840.114 350.1.13.13 1.2.7.2.686 [id number] [facility] 2020-10-16 11:00:00 2020-10-16 11:00:00 Outpatient YANY GARCIA [id number] [facility] 2020-10-01 00:00:00 2020-10-01 00:00:00 Outpatient MD ANGELA GIBSON [id number] [facility] 2020-10-01 00:00:00 2020-10-01 00:00:00 Outpatient ASYA LUKE [id number] [facility] 2020-09-25 00:00:00 2020-09-25 00:00:00 Outpatient ASYA LUKE [id number] [facility] 2020-09-24 10:25:00 2020-09-24 10:25:00 Outpatient LAB47 ANGELA RUDOLPH [id number] Angela Orantes 2020-09-24 10:05:00 2020-09-24 10:05:00 Outpatient ANGELA RUDOLPH [id number] Angela [facility] 2020-09-24 09:30:00 2020-09-24 09:30:00 Outpatient ASYA LUKE [id number] [facility] 2020-06-26 11:30:00 2020-06-26 13:52:00 Emergency X CARMEN ISSA [facility] ERT [id number] [facility] 2020-06-26 11:30:00 2020-06-26 13:52:00 Emergency Carmen Issa [facility] 1.2.840.114 350.1.13.10 4.2.7.2.686 [id number] [facility] 2020-01-07 21:59:00 2020-01-08 01:40:00 Emergency Flakito Morin [facility] 1.2.840.114 350.1.13.10 4.2.7.2.686 [id number] [facility] 2020-01-07 21:59:00 2020-01-08 01:40:00 Emergency FLAKITO AZAR [facility] ERT [id number] [facility] Results Test Description Test Time Test Comments Results Result Co mments Source BASIC METABOLIC [id number] 07:46:00* Test Item Value Reference Range Interpretation Comme nts SODIUM (test code = NA) 139 mEq/L 134-147 N POTASSIUM (test code = K) 4.2 mEq/L 3.4-5.0 N CHLORIDE (test code = CL) 107 mEq/L 100-108 N CARBON DIOXIDE (test code = CO2) 26 mEq/l 21-33 N ANION GAP (test code = GAP) 11 0-20 N GLUCOSE (test code = GLU) 99 mg/dL 77-141 N BLOOD UREA NITROGEN (test code = BUN) 18 mg/dL 7-25 N GLOMERULAR FILTRATION RATE (test code = GFR) 107.2 90-95 H The Glomerular Filtration Rate is a calculated parameterbased on serum Creatinine, patient age and sex. GFR valuesless than 60 mL/min/1.73 square meters are indicative ofChronic Kidney Disease. Values less than 15 mL/min/1.73square meters indicate Kidney failure. The calculation forGFR is based on the CKD-EPI (2021) calculation. This formulais race indifferent and is the recommended formula for GFRby the National Kidney Foundation for Adults.The GFR will not calculate if the sex is unknown or if thepatient's age is <18 years. CREATININE (test code = CREAT) 0.8 mg/dL 0.6-1.3 N CALCIUM (test code = CA) 9.3 mg/dL 8.0-10.5 N GLUCOSE [id number] 07:33:00* Test Item Value Reference Range Interpretation Comme nts GLUCOSE BEDSIDE (test code = GLUBED) 108 MG/DL 70-110 N Performed by cer coleman gum machine operator at [facility] BASIC METABOLIC [id number] 10:10:00* Test Item Value Reference Range Interpretation Comme nts SODIUM (test code = NA) 139 mEq/L 134-147 N POTASSIUM (test code = K) 3.8 mEq/L 3.4-5.0 N CHLORIDE (test code = CL) 105 mEq/L 100-108 N CARBON DIOXIDE (test code = CO2) 26 mEq/l 21-33 N ANION GAP (test code = GAP) 12 0-20 N GLUCOSE (test code = GLU) 108 mg/dL 77-141 N BLOOD UREA NITROGEN (test code = BUN) 14 mg/dL 7-25 N GLOMERULAR FILTRATION RATE (test code = GFR) 103.4 90-95 H The Glomerular Filtration Rate is a calculated parameterbased on serum Creatinine, patient age and sex. GFR valuesless than 60 mL/min/1.73 square meters are indicative ofChronic Kidney Disease. Values less than 15 mL/min/1.73square meters indicate Kidney failure. The calculation forGFR is based on the CKD-EPI (2021) calculation. This formulais race indifferent and is the recommended formula for GFRby the National Kidney Foundation for Adults.The GFR will not calculate if the sex is unknown or if thepatient's age is <18 years. CREATININE (test code = CREAT) 0.9 mg/dL 0.6-1.3 N CALCIUM (test code = CA) 9.5 mg/dL 8.0-10.5 N CBC W/AUTO [id number] 09:55:00* Test Item Value Reference Range Interpretation Comme nts WHITE BLOOD CELL (test code = WBC) 8.9 x10 3/uL 4.5-11.0 N RED BLOOD CELL (test code = RBC) 5.19 x10 6/uL 4.00-5.60 N HEMOGLOBIN (test code = HGB) 14.4 g/dL 12.5-16.9 N HEMATOCRIT (test code = HCT) 44.0 % 37.5-50.7 N MEAN CELL VOLUME (test code = MCV) 84.8 fL 81.0-99.0 N MEAN CELL HGB (test code = MCH) 27.7 pg 27.0-33.0 N MEAN CELL HGB CONCETRATION (test code = MCHC) 32.7 g/dL 33.0-37.0 L RED CELL DISTRIBUTION WIDTH CV (test code = RDW) 12.6 % 11.5-14.5 N RED CELL DISTRIBUTION WIDTH SD (test code = RDW-SD) 38.7 fL 37.0-54.0 N PLATELET COUNT (test code = PLT) 329 x10 3/uL 150-400 N MEAN PLATELET VOLUME (test c ode = MPV) 10.2 fL 7.0-9.0 H NEUTROPHIL % (test code = NT%) 70.3 % 56.0-77.0 N IMMATURE GRANULOCYTE % (test code = IG%) 0.2 % 0.0-2.0 N LYMPHOCYTE % (test code = LY%) 20.0 % 14.0-32.0 N MONOCYTE % (test code = MO%) 6.1 % 4.8-9.0 N EOSINOPHIL % (test code = EO%) 2.8 % 0.3-3.7 N BASOPHIL % (test code = BA%) 0.6 % 0.0-2.0 N NUCLEATED RBC % (test code = NRBC%) 0.0 % 0-0 N NEUTROPHIL # (test code = NT#) 6.26 x10 3/uL 2.0-7.6 N IMMATURE GRANULOCYTE # (test code = IG#) 0.02 x10 3/uL 0.00-0.03 N LYMPHOCYTE # (test code = LY#) 1.78 x10 3/uL 1.0-3.8 N MONOCYTE # (test code = MO#) 0.54 x10 3/uL 0.1-0.8 N EOSINOPHIL # (test code = EO#) 0.25 x10 3/uL 0.0-0.2 H BASOPHIL # (test code = BA#) 0.05 x10 3/uL 0.0-0.2 N NUCLEATED RBC # (test code = NRBC#) 0.00 x10 3/uL 0.0-0.1 N XR CHEST 1 [id number] 04:42:40Ordering physician: BOO POE Clinical indication: Dyspnea Comparison: September 23, 2022 Technique: Chest, single view Technical quality: Adequate Findings: Deformities of right superior ribs are again noted. No acute pulmonaryabnormalities are evident. There are no pleural effusions. Heart size isnormal. The superior mediastinal silhouette is unremarkable for age andprojection.[facility]. METABOLIC PANEL (84039)2021-10-10 16:32:18* Test Item Value Reference Range Interpretation Comme nts NA (test code = 4867143623) 140 mmol/L 135-145 K (test code = 2008673812) 4.4 mmol/L 3.5-5 CL (test code = 5804051585) 100 mmol/L 98-108 CO2 TOTAL (test code = 7564605751) 27 mmol/L 23-31 AGAP (test code = 0985282965) 2-16 BUN (test code = 7744517334) 18 mg/dL 7-23 GLUCOSE (test code = 3705959953) 154 mg/dL 70-110 H CREATININE (test code = 7397785644) 0.93 mg/dL 0.6-1.25 TOTAL BILI (test code = 8415573923) 1.4 mg/dL 0.1-1.1 H CALCIUM (test code = 4629243361) 10.4 mg/dL 8.6-10.6 T PROTEIN (test code = 6483215343) 8.5 g/dL 6.3-8.2 H ALBUMIN (test code = 7659703737) 5.4 g/dL 3.5-5 H ALK PHOS (test code = 4435881657) 83 U/L 34-122 ALTv (test code = 1742-6) 38 U/L 5-50 AST(SGOT) (test code = 0872673956) 30 U/L 13-40 eGFR (test code = 7937674950) mL/min/1.73m2 ELLA (test code = ELLA) Association of Glomerular Filtration Rate (GFR) and Staging of Kidney Disease* + --+ --+ ------+| GFR (mL/min/1.73 m2) ?| With Kidney Damage ?| ?Without Kidney Damage+ --------+ --------+ +| ?>90 ?| ?Stage one ?| ? Normal ?+ ---+ ---+ -------+| ?60-89 ?| ?Stage two ?| ? Decreased GFR ? + --+ --+ ------+| ?30-59 ?| ?Stage three ?| ? Stage three ? + --+ --+ ------+| ?15-29 ?| ?Stage four ? | ? Stage four ?+ ---+ ---+ -------+| ?<15 (or dialysis) ? ?| ?Stage five ? | ? Stage five ?+ ---+ ---+ -------+ *Each stage assumes the associated GFR level has been in effect for at least three months. ?Stages 1 to 5, with or without kidney disease, indicate chronic kidney disease. Notes: Determination of stages one and two (with eGFR >59mL/min/1.73 m2) requires estimation of kidney damage for at least three months as defined by structural or functional abnormalities of the kidney, manifested by either:Pathological abnormalities or Markers of kidney damage (including abnormalities in the composition of the blood or urine or abnormalities in imaging tests). Lab Interpretation (test code = 49613-6) Abnormal [facility] 16:31:58* Test Item Value Reference Range Interpretation Comme nts LIPASE (test code = 0212493010) 130 U/L 0-220 Lab Interpretation (test cod e = 51971-0) Normal General acute hospital WITH [id number] 16:18:38* Test Item Value Reference Range Interpretation Comme nts WBC (test code = 6690-2) See_Comment H [Automated messa ge] The system which generated this result transmitted reference range: 4.20 - 10.70 10*3/?L. The reference range was not used to interpret this result as normal/abnormal. RBC (test code = 789-8) See_Comment H [Automated messa ge] The system which generated this result transmitted reference range: 4.26 - 5.52 10*6/?L. The reference range was not used to interpret this result as normal/abnormal. HGB (test code = 718-7) 18.1 g/dL 12.2-16.4 H HCT (test code = 4544-3) 54.6 % 38.4-49.3 H MCV (test code = 787-2) 83.0 fL 81.7-95.6 MCH (test code = 785-6) 27.5 pg 26.1-32.7 MCHC (test code = 786-4) 33.2 g/dL 31.2-35 RDW-SD (test code = 61557-9) 41.2 fL 38.5-51.6 RDW-CV (test code = 788-0) 14.0 % 12.1-15.4 PLT (test code = 777-3) See_Comment H [Automated messa ge] The system which generated this result transmitted reference range: 150 - 328 10*3/?L. The reference range was not used to interpret this result as normal/abnormal. MPV (test code = 56478-2) 10.4 fL 9.8-13 NRBC/100 WBC (test code = 0381616625) See_Comment [Automated me ssage] The system which generated this result transmitted reference range: 0.0 - 10.0 /100 WBCs. The reference range was not used to interpret this result as normal/abnormal. NRBC x10^3 (test code = 5338261561) See_Comment [Automated messa ge] The system which generated this result transmitted reference range: 10*3/?L. The reference range was not used to interpret this result as normal/abnormal. GRAN MAT (NEUT) % (test code = 770-8) 70.9 % IMM GRAN % (test code = 5611552605) 0.40 % LYMPH % (test code = 736-9) 20.8 % MONO % (test code = 5905-5) 6.4 % EOS % (test code = 713-8) 1.2 % BASO % (test code = 706-2) 0.3 % GRAN MAT x10^3(ANC) (test code = 4812455750) 8.36 10*3/uL 1.99-6.95 H IMM GRAN x10^3 (test code = 1711155603) 0.05 10*3/uL 0-0.06 LYMPH x10^3 (test code = 731-0) 2.45 10*3/uL 1.09-3.23 MONO x10^3 (test code = 742-7) 0.76 10*3/uL 0.36-1.02 EOS x10^3 (test code = 711-2) 0.14 10*3/uL 0.06-0.53 BASO x10^3 (test code = 704-7) 0.04 10*3/uL 0.01-0.09 Lab Interpretation (test code = 10940-0) [facility]normal [facility] [id number] 22:13:00 * Test Item Value Reference Range Interpretation Comme nts BLOOD SUGAR (test code = 473656) 187 mg/dL 65-99 A Lab Interpretation (test cod e = 54200-5) Abnormal Angela SetereseoldXR CHEST 1 [id number] 18:20:46No acute cardiopulmonary abnormality. Preliminary Report Dictated by Resident: Praneeth Babcock I, Rosalio Boateng MD., have reviewed this study and agree with theabove report.EXAM: XR CHEST 1 VW HISTORY: 49 years-old Male; chest pain "At 3am pt woke up withpain/tingling to the LUE/LLE" TECHNIQUE: Single frontal view of the chest. COMPARISON: Chest radiographs dated 01/07/2020 FINDINGS: The lungs are moderately well expanded. Small right midlung zone linearatelectasis is noted. No focal consolidation, pleural effusion, orpneumothorax is visualized. The cardiomediastinal silhouette is normal. No acute osseous abnormality is present. [facility], Radiant Results Inft User - 06/26/2020 1:21 PM CDTEXAM: XR CHEST 1 VWHISTORY: 49 years-old Male; chest pain "At 3am pt woke up withpain/tingling to the LUE/LLE"TECHNIQUE: Single frontal view of the chest.COMPARISON: Chest radiographs dated 01/07/2020FINDINGS:The lungs are moderately well expanded. Small right midlung zone linearatelectasis is noted. No focal consolidation, pleural effusion, orpneumothorax is visualized. The cardiomediastinal silhouette is normal. No acute osseous abnormality is present. IMPRESSIONNo acute cardiopulmonary abnormality.Preliminary Report Dictated by Resident: Praneeth Treadwell, Rosalio Villareal MD., have reviewed this study and agree with theabove report.[facility] HEAD WO [id number] 18:13:08No acute intracranial abnormality. Preliminary Report Dictated by Resident: Sahil Graff I, Sebastián Zaidi MD., have reviewed this study and agree with the abovereport.CT HEAD WO CONTRAST HISTORY: Neuro deficit, acute, stroke suspected COMPARISON: None. TECHNIQUE: Contiguous axial imaging to the base of skull was obtained with2.5 mm slices without intravenous contrast. 5 mm axial, coronal, andsagittal reformats were obtained. FINDINGS: The ventricles and cerebral sulci are normal in caliberand configuration.No hydrocephalus, midline shift or pathological extra-axial fluidcollection is present. The basal cisterns are unremarkable. There is no acute intracranial hemorrhage or significantmass effect. Noparenchymal attenuation abnormality. The arias-white matter differentiationis preserved. Partial empty sella configuration noted. The mastoid air cells and paranasal air sinuses are clear. The calvariumand central skull base are unremarkable. Aspect score: 10. [facility], Radiant Results Inft User - 06/26/2020 1:14 PM CDTCT HEAD WO CONTRASTHISTORY: Neuro deficit, acute, stroke suspected COMPARISON: None.TECHNIQUE: Contiguous axial imaging to the base of skull was obtained with2.5 mm slices without intravenous contrast. 5 mm axial, coronal, andsagittal reformats were obtained.FINDINGS:The ventricles and cerebral sulci are normal in caliber and configuration.No hydrocephalus, midline shift or pathological extra-axial fluidcollection is present. The basal cisterns are unremarkable.There is no acute intracranial hemorrhage or significant mass effect. Noparenchymal attenuation abnormality. The arias-white matter differentiationis preserved.Partial empty sella configuration noted.Themastoid air cells and paranasal air sinuses are clear. The calvariumand central skull base are unremarkable.Aspect score: 10.IMPRESSIONNo acute intracranial abnormality.Preliminary Report Dictated byResident: Gilberto Flower MD., have reviewed this study and agree with the abovereport.[facility] CampusTROPONIN [id number] 18:03:38* Test Item Value Reference Range Interpretation Comme nts TROPONIN I (test code = 8767256682) <0.012 See_Comment [Automated message] The system which generated this result transmitted reference range: <=0.034 ng/mL. The reference range was not used to interpret this result as normal/abnormal. ELLA (test code = ELLA) Equal or Less than 0.034 ng/ml---Normal ?Note: Cardiac troponin begins to rise 3-4 hours after the onset of ischemia. Repeat in 4-6 hours if the sample was drawn within 3-4 hours of the onset of the symptom and found normal. Between 0.035 and 0.120 ng/mL--- Borderline. Questionable myocardial injury or necrosis ? ?Note: Serial measurement may be necessary to confirm or exclude the diagnosis of myocardial injury or necrosis; Clinical correlation (symptoms, EKGs, imaging studies, and others) required; Repeat in 4-6 hours if clinically indicated. ? Equal or Higher than 0.121 ng/mL---Abnormal. Myocardial Injury or Necrosis Likely ? Biotin has been reported to cause a negative bias, interpret results relative to patient's use of biotin. ? Lab Interpretation (test code = 92260-9) Normal General acute hospital WITH [id number] 17:55:18* Test Item Value Reference Range Interpretation Comme nts WBC (test code = 6690-2) See_Comment [Automated messa ge] The system which generated this result transmitted reference range: 4.20 - 10.70 10*3/?L. The reference range was not used to interpret this result as normal/abnormal. RBC (test code = 789-8) See_Comment [Automated messa ge] The system which generated this result transmitted reference range: 4.26 - 5.52 10*6/?L. The reference range was not used to interpret this result as normal/abnormal. HGB (test code = 718-7) 14.2 g/dL 12.2-16.4 HCT (test code = 4544-3) 41.8 % 38.4-49.3 MCV (test code = 787-2) 81.3 fL 81.7-95.6 L MCH (test code = 785-6) 27.6 pg 26.1-32.7 MCHC (test code = 786-4) 34.0 g/dL 31.2-35.0 RDW-SD (test code = 14163-0) 38.2 fL 38.5-51.6 L RDW-CV (test code = 788-0) 13.1 % 12.1-15.4 PLT (test code = 777-3) See_Comment [Automated Spin Ink LTDa ge] The system which generated this result transmitted reference range: 150 - 328 10*3/?L. The reference range was not used to interpret this result as normal/abnormal. MPV (test code = 12236-6) 10.9 fL 9.8-13.0 NRBC/100 WBC (test code = 3244469504) See_Comment [Automated Cuciniale ssage] The system which generated this result transmitted reference range: 0.0 - 10.0 /100 WBCs. The reference range was not used to interpret this result as normal/abnormal. NRBC x10^3 (test code = 1548789931) <0.01 See_Comment [Automated messa ge] The system which generated this result transmitted reference range: 10*3/?L. The reference range was not used to interpret this result as normal/abnormal. GRAN MAT (NEUT) % (test code = 770-8) 68.8 % IMM GRAN % (test code = 7437236600) 0.40 % LYMPH % (test code = 736-9) 23.0 % MONO % (test code = 5905-5) 5.9 % EOS % (test code = 713-8) 1.5 % BASO % (test code = 706-2) 0.4 % GRAN MAT x10^3(ANC) (test code = 6135634382) 6.23 10*3/uL 1.99-6.95 IMM GRAN x10^3 (test code = 9364218033) 0.04 10*3/uL 0.00-0.06 LYMPH x10^3 (test code = 731-0) 2.09 10*3/uL 1.09-3.23 MONO x10^3 (test code = 742-7) 0.54 10*3/uL 0.36-1.02 EOS x10^3 (test code = 711-2) 0.14 10*3/uL 0.06-0.53 BASO x10^3 (test code = 704-7) 0.04 10*3/uL 0.01-0.09 Lab Interpretation (test code = 60264-2) Abnormal [facility]COMP. METABOLIC PANEL (53888)2020-06-26 17:52:19* Test Item Value Reference Range Interpretation Comme nts NA (test code = 3746611053) 140 mmol/L 135-145 K (test code = 8902080708) 3.5 mmol/L 3.5-5.0 CL (test code = 8153538024) 103 mmol/L 98-108 CO2 TOTAL (test code = 5025830532) 26 mmol/L 23-31 AGAP (test code = 2543085964) 2-16 BUN (test code = 7301638243) 17 mg/dL 7-23 GLUCOSE (test code = 6027285399) 112 mg/dL 70-110 H CREATININE (test code = 5117763949) 0.77 mg/dL 0.60-1.25 TOTAL BILI (test code = 4774055336) 0.8 mg/dL 0.1-1.1 CALCIUM (test code = 8511440708) 9.8 mg/dL 8.6-10.6 T PROTEIN (test code = 7078655812) 7.1 g/dL 6.3-8.2 ALBUMIN (test code = 8214533290) 4.5 g/dL 3.5-5.0 ALK PHOS (test code = 6073764392) 82 U/L 34-122 ALTv (test code = 1742-6) 30 U/L 5-50 AST(SGOT) (test code = 8462563553) 30 U/L 13-40 eGFR (test code = 3370343654) mL/min/1.73m2 ELLA (test code = ELLA) Association of Glomerular Filtration Rate (GFR) and Staging of Kidney Disease* + --+ --+ ------+| GFR (mL/min/1.73 m2) ?| With Kidney Damage ?| ?Without Kidney Damage+ --------+ --------+ +| ?>90 ?| ?Stage one ?| ? Normal ?+ ---+ ---+ -------+| ?60-89 ?| ?Stage two ?| ? Decreased GFR ? + --+ --+ ------+| ?30-59 ?| ?Stage three ?| ? Stage three ? + --+ --+ ------+| ?15-29 ?| ?Stage four ? | ? Stage four ?+ ---+ ---+ -------+| ?<15 (or dialysis) ? ?| ?Stage five ? | ? Stage five ?+ ---+ ---+ -------+ *Each stage assumes the associated GFR level has been in effect for at least three months. ?Stages 1 to 5, with or without kidney disease, indicate chronic kidney disease. Notes: Determination of stages one and two (with eGFR >59mL/min/1.73 m2) requires estimation of kidney damage for at least three months as defined by structural or functional abnormalities of the kidney, manifested by either:Pathological abnormalities or Markers of kidney damage (including abnormalities in the composition of the blood or urine or abnormalities in imaging tests). Lab Interpretation (test code = 00539-5) Abnormal [facility]IPASE2021-[facility]-21 17:52:19* Test Item Value Reference Range Interpretation Comme nts LIPASE (test code = 1935895051) 170 U/L 0-220 Lab Interpretation (test cod e = 15117-4) Normal [facility] CampusTROPONIN [id number] 06:44:00* Test Item Value Reference Range Interpretation Comme nts TROPONIN I (test code = 5680321573) <0.012 See_Comment [Automated message] The system which generated this result transmitted reference range: <=0.034 ng/mL. The reference range was not used to interpret this result as normal/abnormal. ELLA (test code = ELLA) Equal or Less than 0.034 ng/ml---Normal ?Note: Cardiac troponin begins to rise 3-4 hours after the onset of ischemia. Repeat in 4-6 hours if the sample was drawn within 3-4 hours of the onset of the symptom and found normal. Between 0.035 and 0.120 ng/mL--- Borderline. Questionable myocardial injury or necrosis ? ?Note: Serial measurement may be necessary to confirm or exclude the diagnosis of myocardial injury or necrosis; Clinical correlation (symptoms, EKGs, imaging studies, and others) required; Repeat in 4-6 hours if clinically indicated. ? Equal or Higher than 0.121 ng/mL---Abnormal. Myocardial Injury or Necrosis Likely ? Biotin has been reported to cause a negative bias, interpret results relative to patient's use of biotin. ? Lab Interpretation (test code = 30063-2) Normal [facility] CampusXR CHEST 1 [id number] 06:03:11Impression: No radiographic evidence for acute cardiopulmonary disease. RL: [id number] AFC: [id number] Ordering physician: FLAKITO LOPEZMAIndication: Shortness of breath Comparison: None Findings: Single AP view of the chest. The cardiopericardial silhouette iswithin normal limits. The lungs are clear bilaterally. The visualized bonytho rax is intact. Nemb, Radiant Results Inft User - 01/08/2020 12:04 AM CSTOrdering physician: FLAKITO LOPEZMAIndication: Shortness of breathComparison: NoneFindings: Single AP view of the chest. The cardiopericardial silhouette iswithin normal limits. The lungs are clear bilaterally. The visualized shanti nythorax is intact.IMPRESSIONImpression:No radiographic evidence for acute cardiopulmonary disease.RL: [id number]: [id number] signed by Ilda Rogers MD, PhD at 01/08/2020 12:03 [facility]APID TESTING)2020-01-08 05:58:00* Test Item Value Reference Range Interpretation Comme [facility] SARS-CoV-2 Rapid ID NOW (test code = 00812-6) Not Detected Not Detected ELLA (test code = ELLA) ID NOW COVID-19 As say is an isothermal nucleic acid amplification test intended for the qualitative detection of nucleic acid from SARS-CoV-2 viral RNA in nasopharyngeal (TECHNICAL SPEC) specimens. It is used under Emergency Use Authorization (EUA) by FDA. The limit of detection (LOD) of the assay is 125 Genome Equivalents/mL. A positive result is indicative of the presence of SARS-CoV-2 RNA. ?Clinical correlation with patient history and other diagnostic information is necessary to determine patient infection status. A negative (Not Detected) result does not preclude SARS-CoV-2 infection. In patients with clinical symptoms and other tests that are consistent with SARS-CoV-2 infection, negative results should be treated as presumptive negative and a new specimen should be tested with alternative PCR molecular test. Invalid: Please collect a new specimen for repeat patient testing if clinically indicated. Lab Interpretation (test code = 73141-9) Normal [facility] CampusaPTT2020-12-02 05:17:00* Test Item Value Reference Range Interpretation Comme [facility] APTT Patient (test code = 3173-2) See_Comment [Automated message] The system which generated this result transmitted reference range: 23 - 38 Seconds. The reference range was not used to interpret this result as normal/abnormal. ELLA (test code = ELLA) The [facility] patient population mean normal value for aPTT is 30 seconds. Lab Interpretation (test code = 40472-6) Normal [facility] CampusPROTHROMBIN TIME / [id number] 05:15:00* Test Item Value Reference Range Interpretation Comme [facility] PROTIME PATIENT (test code = 5964-2) See_Comment [Automated Spin Ink LTDa ge] The system which generated this result transmitted reference range: 12.0 - 14.7 Seconds. The reference range was not used to interpret this result as normal/abnormal. INR (test code = 6301-6) Normal INR <1.1; Warfarin Therapeutic range 2.0 to 3.0 or 2.5 to 3.5, depending upon the indications. Lab Interpretation (test code = 44228-2) Normal [facility] WITH [id number] 05:15:00* Test Item Value Reference Range Interpretation Comme nts WBC (test code = 6690-2) See_Comment [Automated Spin Ink LTDa ge] The system which generated this result transmitted reference range: 4.20 - 10.70 10*3/?L. The reference range was not used to interpret this result as normal/abnormal. RBC (test code = 789-8) See_Comment [Automated Spin Ink LTDa ge] The system which generated this result transmitted reference range: 4.26 - 5.52 10*6/?L. The reference range was not used to interpret this result as normal/abnormal. HGB (test code = 718-7) 14.7 g/dL 12.2-16.4 HCT (test code = 4544-3) 43.4 % 38.4-49.3 MCV (test code = 787-2) 82.7 fL 81.7-95.6 MCH (test code = 785-6) 28.0 pg 26.1-32.7 MCHC (test code = 786-4) 33.9 g/dL 31.2-35 RDW-SD (test code = 53596-7) 39.0 fL 38.5-51.6 RDW-CV (test code = 788-0) 13.1 % 12.1-15.4 PLT (test code = 777-3) See_Comment [Automated Spin Ink LTDa ge] The system which generated this result transmitted reference range: 150 - 328 10*3/?L. The reference range was not used to interpret this result as normal/abnormal. MPV (test code = 93649-9) 11.3 fL 9.8-13 IPF % (test code = 4131161505) 7.1 % 1.2-10.7 NRBC/100 WBC (test code = 7731661921) See_Comment [Automated me ssage] The system which generated this result transmitted reference range: 0.0 - 10.0 /100 WBCs. The reference range was not used to interpret this result as normal/abnormal. NRBC x10^3 (test code = 1598406482) <0.01 See_Comment [Automated me ssage] The system which generated this result transmitted reference range: 10*3/?L. The reference range was not used to interpret this result as normal/abnormal. GRAN MAT (NEUT) % (test code = 770-8) 65.0 % IMM GRAN % (test code = 9863856686) 0.40 % LYMPH % (test code = 736-9) 25.4 % MONO % (test code = 5905-5) 6.8 % EOS % (test code = 713-8) 1.9 % BASO % (test code = 706-2) 0.5 % GRAN MAT x10^3(ANC) (test code = 0102679606) 6.62 10*3/uL 1.99-6.95 IMM GRAN x10^3 (test code = 1812542104) 0.04 10*3/uL 0-0.06 LYMPH x10^3 (test code = 731-0) 2.58 10*3/uL 1.09-3.23 MONO x10^3 (test code = 742-7) 0.69 10*3/uL 0.36-1.02 EOS x10^3 (test code = 711-2) 0.19 10*3/uL 0.06-0.53 BASO x10^3 (test code = 704-7) 0.05 10*3/uL 0.01-0.09 [facility] [id number] 05:12:00* Test Item Value Reference Range Interpretation Comme nts TROPONIN I (test code = 4739514390) <0.012 See_Comment [Automated message] The system which generated this result transmitted reference range: <=0.034 ng/mL. The reference range was not used to interpret this result as normal/abnormal. ELLA (test code = ELLA) Equal or Less than 0.034 ng/ml---Normal ?Note: Cardiac troponin begins to rise 3-4 hours after the onset of ischemia. Repeat in 4-6 hours if the sample was drawn within 3-4 hours of the onset of the symptom and found normal. Between 0.035 and 0.120 ng/mL--- Borderline. Questionable myocardial injury or necrosis ? ?Note: Serial measurement may be necessary to confirm or exclude the diagnosis of myocardial injury or necrosis; Clinical correlation (symptoms, EKGs, imaging studies, and others) required; Repeat in 4-6 hours if clinically indicated. ? Equal or Higher than 0.121 ng/mL---Abnormal. Myocardial Injury or Necrosis Likely ? Biotin has been reported to cause a negative bias, interpret results relative to patient's use of biotin. ? Lab Interpretation (test code = 16469-3) Normal [facility] CampusCOMP. METABOLIC PANEL (75975)2020-01-08 05:01:00* Test Item Value Reference Range Interpretation Comme nts NA (test code = 8002458448) 136 mmol/L 135-145 K (test code = 7392677038) 3.8 mmol/L 3.5-5 CL (test code = 0748883742) 101 mmol/L 98-108 CO2 TOTAL (test code = 3256260785) 28 mmol/L 23-31 AGAP (test code = 7672159612) 2-16 BUN (test code = 3023222211) 18 mg/dL 7-23 GLUCOSE (test code = 9429725202) 217 mg/dL 70-110 H CREATININE (test code = 0924590990) 0.86 mg/dL 0.6-1.25 TOTAL BILI (test code = 7382056292) 0.4 mg/dL 0.1-1.1 CALCIUM (test code = 1631592751) 9.4 mg/dL 8.6-10.6 T PROTEIN (test code = 0194265439) 7.4 g/dL 6.3-8.2 ALBUMIN (test code = 2153734171) 4.5 g/dL 3.5-5 ALK PHOS (test code = 3260920058) 81 U/L 34-122 ALTv (test code = 1742-6) 29 U/L 5-50 AST(SGOT) (test code = 2957845858) 26 U/L 13-40 eGFR Calculation (Non-) (test code = 1537249824) mL/min/1.73m2 eGFR Calculation () (test code = 0275829635) mL/min/1.73m2 ELLA (test code = ELLA) Association of Glomerular Filtration Rate (GFR) and Staging of Kidney Disease* + --+ --+ ------+| GFR (mL/min/1.73 m2) ?| With Kidney Damage ?| ?Without Kidney Damage+ --------+ --------+ +| ?>90 ?| ?Stage one ?| ? Normal ?+ ---+ ---+ -------+| ?60-89 ?| ?Stage two ?| ? Decreased GFR ? + --+ --+ ------+| ?30-59 ?| ?Stage three ?| ? Stage three ? + --+ --+ ------+| ?15-29 ?| ?Stage four ? | ? Stage four ?+ ---+ ---+ -------+| ?<15 (or dialysis) ? ?| ?Stage five ? | ? Stage five ?+ ---+ ---+ -------+ *Each stage assumes the associated GFR level has been in effect for at least three months. ?Stages 1 to 5, with or without kidney disease, indicate chronic kidney disease. Notes: Determination of stages one and two (with eGFR >59mL/min/1.73 m2) requires estimation of kidney damage for at least three months as defined by structural or functional abnormalities of the kidney, manifested by either:Pathological abnormalities or Markers of kidney damage (including abnormalities in the composition of the blood or urine or abnormalities in imaging tests). Lab Interpretation (test code = 79937-1) Abnormal [facility] CampusLIPASE, [id number] 05:01:00* Test Item Value Reference Range Interpretation Comme [facility] LIPASE (test code = 8272057202) 297 U/L 0-220 H Lab Interpretation (test cod e = 70251-1) Abnormal [facility] CampusPOCT GLUCOSE (AUTOMATED)2020-01-08 04:05:00* Test Item Value Reference Range Interpretation Comme [facility] POCT GLU (test code = 7271676917) 209 mg/dL 70-110 H Lab Interpretation (test cod e = 89646-9) Abnormal [facility]
--- NOTE | 2024-02-14 15:00 | RAD REPORT ---
EXAMINATION: XR LEFT KNEE CLINICAL INDICATION: PAIN TECHNIQUE: Multiple projections of the left knee were obtained. COMPARISON: No prior exam. FINDINGS: No bone or joint abnormality seen. Trace suprapatellar fluid.
--- NOTE | 2024-02-14 15:37 | ER ---
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 It feels tight now. Coronavirus screen: Client denies travel out of the [place] in the last 14 days. Ebola Screen: Patient negative for fever greater than or equal to 101.5 degrees Fahrenheit, and additional compatible Ebola Virus Disease symptoms Patient denies exposure to infectious person. Patient denies travel to an Ebola-affected area in the 21 days before illness onset. No symptoms or risks identified at this time. Initial Sepsis Screen:. Risk Assessment: Do you want to hurt yourself or someone else? Patient reports no desire to harm self or others. Onset of symptoms was February 14, 2024. 14:13 Method Of Arrival: Ambulatory tm6 14:13 Acuity: SJ 4 tm6 14:20 Initial Sepsis Screen: Does the patient meet any 2 criteria? No. Patient's initial tm6 sepsis screen is negative. Does the patient have a suspected source of infection? No. Patient's initial sepsis screen is negative. Triage Assessment: 14:14 General: Appears in no apparent distress. uncomfortable, Behavior is calm, cooperative. tm6 Pain: Complains of pain in right knee Pain currently is 8 out of 10 on a pain scale. Quality of pain is described as sharp, tight. EENT: No signs and/or symptoms were reported regarding the EENT system. Neuro: Level of Consciousness is awake, alert, obeys commands, Oriented to person, place, time, situation. Cardiovascular: Patient's skin is warm and dry. Respiratory: Airway is patent Respiratory effort is even, unlabored, Respiratory pattern is regular, symmetrical. GI: No signs and/or symptoms were reported involving the gastrointestinal system. Abdomen is flat, non-distended. : No signs and/or symptoms were reported regarding the genitourinary system. Derm: No signs and/or symptoms reported regarding the dermatologic system. Musculoskeletal: Reports pain in left knee Pain is 8 out of 10 on a pain scale. Injury Description: fall. Historical: - Allergies: 14:14 No Known Allergies; tm6 - PMHx: 14:14 Diabetes - IDDM; Hypertension; tm6 - PSHx: 14:14 None; tm6 - Immunization history:: Flu vaccine is not up to date. - Infectious Disease History:: Denies. - Social history:: Smoking status: Patient denies any tobacco usage or history of. - Family history:: not pertinent. - Hospitalizations: : No recent hospitalization is reported. Screenin:12 [facility] ED Fall Risk Assessment (Adult) History of falling in the last 3 months, me1 including since admission No falls in past 3 months (0 pts) Confusion or Disorientation No (0 pts) Intoxicated or Sedated No (0 pts) Impaired Gait Yes (1 pt) Mobility Assist Device Used No (0 pt) Altered Elimination No (0 pt) Score/Fall Risk Level 0 - 2 = Low Risk Maintained a safe environment, Provided non-skid footwear, Hourly rounding (assess needs \T\ fall precautionary measures) done. Abuse screen: Denies threats or abuse. Nutritional screening: No deficits noted. Tuberculosis screening: No symptoms or risk factors identified. 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 It feels tight now. Pain: Complains of pain in left leg and left knee Pain does not radiate. Pain currently is 8 out of 10 on a pain scale. Quality of pain is described as pulling, tight Pain began suddenly, Is continuous. Neuro: Level of Consciousness is awake, alert, obeys commands, Oriented to person, place, time, situation, Appropriate for age. Cardiovascular: Patient's skin is warm and dry. Respiratory: Airway is patent Respiratory effort is even, unlabored, Respiratory pattern is regular, symmetrical. GI: No signs and/or symptoms were reported involving the gastrointestinal system. : No signs and/or symptoms were reported regarding the genitourinary system. EENT: No signs and/or symptoms were reported regarding the EENT system. Derm: Skin is intact, is healthy with good turgor, Skin is pink, warm \T\ dry. Musculoskeletal: Reports pain in right knee. 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 It feels tight now. Vital Signs: 14:20 BP 144 / 116; Pulse 79; Resp 19; Temp 96.9(TE); Pulse Ox 98% on R/A; MAP 125 mmHg; tm6 Weight 99.79 kg; Height 5 ft. 10 in. ; Pain 8/10; 14:20 Pain 8/10; tm6 15:30 BP 144 / 95; Pulse 71; Resp 16; Temp 98.3; Pulse Ox 99% ; me1 14:20 Body Mass Index 31.57 (99.79 kg, 177.8 cm) tm6 14:20 Pain Scale: Adult tm6 14:20 Pain Scale: Adult tm6 ED Course: 14:10 Patient arrived in ED. ra3 14:12 Peter Dolan MD is Attending Physician. rn 14:14 Triage completed. tm6 14:14 Arm band placed on right wrist. tm6 14:39 XRAY Knee LEFT 3 view In Process Unspecified. EDMS 15:10 Michelle Gonzalez, RN is Primary Nurse. me1 15:12 Patient has correct armband on for positive identification. Bed in low position. Call me1 light in reach. Side rails up X 1. Provided Education on: POC. Verbalized understanding.. Client placed on continuous cardiac and pulse oximetry monitoring. NIBP monitoring applied. Pulse ox on. NIBP on. 15:12 No provider procedures requiring assistance completed. Patient did not have IV access me1 during this emergency room visit. Administered Medications: No medications were administered Medication: 15:12 VIS not applicable for this client. me1 Outcome: 15:37 Discharge ordered by . rn 15:50 Discharged to home ambulatory, me1 15:50 Condition: stable 15:50 Discharge instructions given to patient, Instructed on discharge instructions, follow up and referral plans. Demonstrated understanding of instructions, follow-up care, 15:50 Patient left the ED. 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 It feels tight now. tm6
--- NOTE | 2024-02-14 15:37 | EDPHYS ---
Physician Documentation [facility] Name: Lexa Carrizales Jr Age: 53 yrs Sex: Male : 1970 Arrival Date: 02/14/2024 Time: 14:07 Bed 16 Private MD: ED Physician Peter Dolan HPI: 02/13 14:58 This 53 yrs old Male presents to ER via Ambulatory with complaints of Knee rn Injury - work related. 14:58 The patient presents with an injury, pain. The complaints affect the left knee. Onset: rn The symptoms/episode began/occurred today. Modifying factors: The symptoms are alleviated by nothing. the symptoms are aggravated by movement, weight bearing, bending knee. Severity of symptoms: At their worst the symptoms were mild. The patient has not experienced similar symptoms in the past. The patient has not recently seen a physician. Patient reports left knee pain, was a flexion and rotation injury while at work. No direct trauma. No significant swelling. Able to ambulate and reports only pain with extreme flexion. Has had a meniscus injury to the right knee and states this feels similar. Does not take blood thinners.. Historical: - Allergies: 14:14 No Known Allergies; tm6 - PMHx: 14:14 Diabetes - IDDM; Hypertension; tm6 - PSHx: 14:14 None; tm6 - Immunization history:: Flu vaccine is not up to date. - Infectious Disease History:: Denies. - Social history:: Smoking status: Patient denies any tobacco usage or history of. - Family history:: not pertinent. - Hospitalizations: : No recent hospitalization is reported. ROS: 14:58 Constitutional: Negative for fever, chills, and weight loss, MS/Extremity: Positive for rn left knee injury and pain Skin: Negative for injury, rash, and discoloration, Neuro: Negative for weakness or numbness Exam: 14:58 Constitutional: This is a well developed, well nourished patient who is awake, alert, rn and in no acute distress. MS/ Extremity: Pulses equal, no cyanosis. Neurovascular intact. Pain only at extreme flexion. Mild suprapatellar knee effusion palpated. No bony tenderness. Vital Signs: 14:20 BP 144 / 116; Pulse 79; Resp 19; Temp 96.9(TE); Pulse Ox 98% on R/A; MAP 125 mmHg; tm6 Weight 99.79 kg; Height 5 ft. 10 in. ; Pain 8/10; 14:20 Pain 8/10; tm6 15:30 BP 144 / 95; Pulse 71; Resp 16; Temp 98.3; Pulse Ox 99% ; me1 14:20 Body Mass Index 31.57 (99.79 kg, 177.8 cm) tm6 14:20 Pain Scale: Adult tm6 14:20 Pain Scale: Adult tm6 MDM: 14:12 Medical Screening Exam initiated rn 15:36 Differential diagnosis: Knee sprain, knee effusion, meniscus injury, ligamentous rn injury. Data reviewed: vital signs, nurses notes, radiologic studies, plain films, and as a result, I will discharge patient. Counseling: I had a detailed discussion with the patient and/or guardian regarding the historical points, exam findings, and any diagnostic results supporting the discharge/admit diagnosis, radiology results, the need for outpatient follow up, to return to the emergency department if symptoms worsen or persist or if there are any questions or concerns that arise at home. Special discussion: I discussed with the patient/guardian in detail that at this point there is no indication for admission to the hospital. It is understood, however, that if the symptoms persist or worsen the patient needs to return immediately for re-evaluation. Further emergent ED testing is not indicated at this point in time. I discussed with the patient/guardian in detail the need to arrange with the PCP or specialist further outpatient testing, MRI, Based on the history and exam findings, there is no indication for further emergent testing or inpatient evaluation. I discussed with the patient/guardian the need to see the orthopedic surgeon for further evaluation of the symptoms. ED course: No acute findings on x-ray of the left knee, specifically no fracture or dislocation per my interpretation. Will discharge home with Ortho follow-up and MRI as outpatient as most likely ligamentous or meniscus injury. 02/13 14:15 Order name: XRAY Knee LEFT 3 view; Complete Time: 15:03 rn Administered Medications: No medications were administered Disposition Summary: 02/14/24 15:37 Discharge Ordered Notes: Location: Home rn Problem: new rn Symptoms: have improved rn Condition: Stable rn Diagnosis - Unspecified internal derangement of left knee rn - Effusion, left knee rn Followup: rn - With: Private Physician - When: As needed - Reason: Recheck today's complaints, Re-evaluation by your physician Discharge Instructions: - Discharge Summary Sheet rn - Knee Effusion rn - Knee Sprain, Adult rn Forms: - Medication Reconciliation Form rn - Antibiotic patternmaker metal bench - Prescription Opioid Use rn - Patient Portal Instructions rn - Leadership Thank You Letter rn Signatures: Dispatcher [employer] Peter Pimentel MD MD rn TabbyMonique RN RN tm6
[2024-02-14 15:56] VITALS: BP 144/95; TEMP 98.3; O2SAT 99
== END 2024-02-14 15:50 | disposition home or self-care (01) ==
LOC: ER 14:07
DX: M23.92 Unspecified internal derangement of left knee (principal); M25.462 Effusion, left knee
CPT/HCPCS: 99283